=== PATIENT | female | born 1945 | race Caucasian/White ===

== ENCOUNTER → 2023-09-05 15:29 | Outpatient (REF) | payer MEDICARE, BC, SELFPAY | LOC: HWRAD 15:29 | PROVIDERS: ATTENDING PHYSICIAN Internal Medicine; FAMILY PHYSICIAN Internal Medicine Geriatric Medicine | DX: R91.1 Solitary pulmonary nodule (principal) | CPT/HCPCS: 71250 ==

== ENCOUNTER → 2023-09-10 10:56 | Outpatient (REF) | payer MEDICARE, BC, SELFPAY | LOC: DHSLP 10:56 | PROVIDERS: ATTENDING PHYSICIAN Internal Medicine; FAMILY PHYSICIAN Internal Medicine Geriatric Medicine | DX: G47.33 Obstructive sleep apnea (adult) (pediatric) (principal); R09.02 Hypoxemia | CPT/HCPCS: 95800 ==

== ENCOUNTER 2024-02-01 12:17 | Inpatient (IN) | payer MEDICARE, BC, SELFPAY ==
[2024-02-01] VITALS (7 sets, daily range): BP systolic 96–138; BP diastolic 50–79; BMI 35.5; BMI 37.1
[2024-02-01 08:43] LABS: % Basophils 0.4 % (0-2); % Eosinophils 0.5 % (0-6); % Immature Granulocytes 1.1 % (0-0.5); % Lymphocytes 13.4 % (20.5-51.1); % Monocytes 12.2 % (1.7-9.3); % Neutrophils 72.4 % (42.2-75.2); Absolute Immature Granulocytes 0.1 10^3/uL (0-0.05); Absolute Lymphocytes 1.1 10^3/uL (1.2-3.4); Absolute Neutrophils 5.9 10^3/uL (1.4-6.5); Hematocrit 39.2 % (37.0-47.0); Hemoglobin 13.1 g/dL (12.0-16.0); Mean Corp Hgb Conc. 33.4 g/dL (33.0-37.0); Mean Corpuscular Hgb 28.9 pg (27.0-31.0); Mean Corpuscular Volume 86.5 fL (81.0-99.0); Mean Platelet Volume 10.7 fL (7.4-10.4); Nucleated Red Blood Cells % 0 %; Platelet Count 129 10^3/uL (130-400); Red Blood Cell Count 4.53 10^6/uL (4.20-5.40); Red Cell Dist. Width 16.1 % (11.5-14.5); White Blood Cell Count 8.1 10^3/uL (4.8-10.8)
--- NOTE | 2024-02-01 08:45 | ED.GENMED ---
History of Present Illness
General
Chief Complaint: Chest Pain
Source: patient and records
Time Seen by Provider: 02/01/24 08:27
History of Present Illness
History of Present Illness:
This patient is an 78-year-old female presents emergency department complaints of left-sided chest pain. She states she got up around 5:30 AM and got dressed, felt like her usual self until around 6 AM when she developed a gradual onset of pain
just under her left breast without radiation. She describes the pain as 'sharp' and worse when she breathes in. She denies associated back pain, neck pain, jaw pain, headache, dizziness, abdominal pain, dyspnea, fever, chills. She does note a
recent cough. Patient has a history of CAD and states that she takes nitroglycerin infrequently, estimated every couple of months. She describes angina for her as a 'heavy' feeling across the front of her chest which is typically relieved with
nitroglycerin. The symptoms she is experiencing today are not similar to angina in the past. She did take nitroglycerin today without relief of symptoms.
Past History
Past History
ED Past Medical History: Other (CAD, hypertension, diabetes, hypercholesterolemia, COPD, CKD)
ED Past Surgical History: Orthopedic
Social History
Tobacco: Non-smoker
Alcohol: None
Drug: None
Phy Exam
Physical Exam
Physical Exam:
GENERAL: Alert , in no apparent distress
EYE: pupils equal and reactive
NECK: Supple, no significant adenopathy.
ENT: o/p clr, mmm.
CARDIAC: Regular rate and rhythm .
LUNGS: Equal breath sounds bilaterally, no acute respiratory distress, rales noted at R base. Occas nonprod cough noted
ABDOMEN: Soft, without focal tenderness, no r/g
NEUROLOGICAL: Alert and oriented, nonfocal
SKIN: Warm and dry, skin intact.
MUSCULOSKELETAL: tr bilat le edema, well perfused.
PSYCH: Normal and appropriate interaction.
Course
Orders/Labs/Results
Orders:
Orders
02/01/24 08:16
EKG- Treatment ONCE
02/01/24 08:20
Electrocardiogram (*1) Urgent
Reason for Study: Chest Pain
EKG- Treatment ONCE
02/01/24 08:31
CMP [Comprehensive Metabolic Panel] Urgent
Complete Blood Count/With Diff Urgent
Troponin I Urgent
02/01/24 08:35
D-Dimer Urgent
02/01/24 08:43
CR Chest - 2 Views Urgent
Comment:
Reason For Exam: cp
02/01/24 08:50
Ketorolac [Toradol] 15 mg IV NOW STA
02/01/24 09:59
CT Chest Pe Study Urgent
Comment:
Reason For Exam: L sided pain, elevated d dimer
02/01/24 11:[address] See Dose Instructions PO NOW STA
Discontinue all Active Warfarin orders?: Yes
02/01/24 11:14
PTT Urgent
Comment: Obtain baseline before beginning heparin infusion if not already collected
Nursing to Place Non Medication Order As Directed
Physician Order: PTT 6 hours after initial start of Heparin infusion
02/01/24 11:15
Heparin 48454 Units/250 ml 25,000 units in 250 ml IV PER PROTOCOL
Weight to be used for heparin protocol in kilograms (kg):: 86.7
Protocol:: DVT/PE
PTT Goal Range to be used:: PTT 73 to 111 seconds
Order type:: Initial
INITIAL Infusion Dose (UNITS/KG/hr) & then follow protocol:: 18 units/kg/hr
Infusion Dose in UNITS/hr & then follow protocol (UNITS/hr):: 1,600
INFUSION RATE in mL/hr & then follow protocol (mL/hr):: 16
For DVT/PE algorithm, re-bolus for low PTT?: Yes
PTT less than or equal to 64 seconds:: Re-bolus 80 units/kg (max 10,000units). Increase by 300 units/hr
(+ 3mL/hr)
PTT 64.1 to 72.9 seconds:: Re-bolus 40 units/kg (max 5,000 units). Increase by 200 units/hr
(+ 2mL/hr)
PTT 73 to 111 seconds:: Target Range. No change in rate.
PTT 111.1 to 130.9 seconds:: Decrease rate by 200 units/hr (- 2 mL/hr)
PTT 131 to 199.9 seconds:: HOLD for 1 hr. Then decrease by 300 units/hr (- 3mL/hr)
PTT greater than or equal to 200 seconds:: HOLD for 2 hrs & Notify Provider. Then decrease by 300 units/hr
(- 3mL/hr)
Lab follow-up:: Each change, PTT q6h until 2 consecutive are therapeutic. Then
PTT daily.
02/01/24 12:[address] See Dose Instructions IV DIRECTED
Abnormal Lab Results
02/01/24 02/01/24
08:31 08:35
RDW 16.1 H %
(11.5-14.5)
Plt Count 129 L D 10^3/uL
(130-400)
MPV 10.7 H fL
(7.4-10.4)
Abs Immat Gran (auto) 0.1 H 10^3/uL
(0-0.05)
Absolute Lymphs (auto) 1.1 L 10^3/uL
(1.2-3.4)
Absolute Monos (auto) 1.0 H 10^3/uL
(0.1-0.6)
Immature Gran % 1.1 H %
(0-0.5)
Lymphocytes % 13.4 L %
(20.5-51.1)
Monocytes % 12.2 H %
(1.7-9.3)
D-Dimer 2.95 H ug/mlFEU
(0.00-0.50)
Glucose 101 H mg/dl
(70-99)
Total Protein 6.0 L g/dl
(6.3-8.2)
02/01/24 08:31
02/01/24 08:31
Vital Signs
Initial and Last Documented VS:
Initial Vital Signs
Pulse Resp BP Pulse Ox
94 18 128/79 95
02/01/24 08:17 02/01/24 08:17 02/01/24 08:17 02/01/24 08:17
Last Documented Vital Signs
Pulse Resp BP Pulse Ox
88 19 114/67 95
02/01/24 11:09 02/01/24 11:09 02/01/24 09:00 02/01/24 11:09
Update Note
Update Note:
Patient presents to the Emergency Department with _cp
Number and Complexity of Problems Addressed at the Encounter
� Chronic conditions affecting care:
� Acute Exacerbation and/or Progression of Chronic Illness:
� Differential Diagnosis includes:but not limited to pleurisy,pna, pe, acs, ptx, etc etc
Amount and/or Complexity of Data to be Reviewed and Analyzed
� I performed an independent evaluation of and my interpretation is:
EKG: read by me, nsr, no acute ischemia
CT:via tt from rads Positive pe study for [facility]. Pretty significant clot burden but RV doesn�t look appreciably dilated
Xrays:Minimal bibasilar atelectasis/scarring. Questionable 10 mm nodular density within the RIGHT midlung which may correspond to a nodule seen on the prior CT.
No pleural effusions.
Laboratory Studies:nonspecific thrombocytopenia, trop nonspec 0.026
Other:
� Review of other/old records reveals: rehab notes from [facility] reviewed
� Clinical information was obtained by an independent historian:
� Prescriptions/Medications Considered but not given:considered morphine for pain however narc allergy noted (n/v). Toradol given, consideration of low risk bleeding given heparin/asa already, labs reviewed and kidney fx/gfr wnl
from 01.28.24
� Further testing considered but not performed:
Risk of Complications and/or Morbidity or Mortality of Patient Management
� Social determinants of health affecting care:
� Discussion with other providers (PCP, Hospitalists, Consultants, etc):
� Escalation of care including admission/observation vs risk of discharge considered: 11:19 AM Bostic text to Dr. Wilson hospitalists making him aware of patient. Of note, patient already received subcu 5000 units of heparin
this morning, therefore bolus was avoided and patient just started on a heparin drip by me. Reassessment, vital signs are stable, patient comfortable, no new complaints. Pulse ox within normal limits. Given stability and lack of RV strain, do not
suspect patient is a candidate for more invasive therapy at this time.
ED Attending Note
-
Portions of this chart may have been created with voice recognition software.� Occasional wrong word or��sound alike� substitutions may have occurred due to the inherent limitations of voice recognition software.
Discharge Plan
Departure
Patient Disposition: Admit
Date of Disposition: 02/01/24
Time of Disposition: 11:19
Presentation/result/management discussed w/ accepting MD/DO: Hospitalist
Condition: Fair
Discharge Problem:
Pulmonary embolism
Prescriptions:
No Action
sennosides [senna] 8.6 mg Tablet
17.2 mg PO NOON
lidocaine 4 % Adhesive Patch,Medicated
1 patch TOPICAL DAILY
albuterol sulfate 1.25 mg/3 mL Solution For Nebulization
1.25 mg INHALATION DAILY
albuterol sulfate 1.25 mg/3 mL Solution For Nebulization
1.25 mg INHALATION Q4H PRN (Reason: sob)
pantoprazole 20 mg Tablet,Delayed Release (Dr/Ec)
20 mg PO HS
fluticasone propionate [Flovent] 44 mcg/actuation Hfa Aerosol Inhaler
2 puff INHALATION BID
docusate sodium [Colace] 100 mg Capsule
100 mg PO BID
gabapentin 300 mg Capsule
300 mg PO HS
heparin (porcine) 5,000 unit/mL Solution
5,000 unit SC Q12H
guaifenesin 200 mg/5 mL Liquid
200 mg PO Q4H PRN (Reason: cough)
aspirin 81 mg Capsule
81 mg PO DAILY
BenGay
1 dose topical TIDPRN PRN (Reason: .as directed)
acetaminophen 325 mg Tablet
650 mg PO Q6HPRN PRN (Reason: mild pain)
budesonide 3 mg Capsule,Delayed,Extend.Release
9 mg PO DAILY
albuterol sulfate [Proventil HFA] 90 mcg/actuation Hfa Aerosol Inhaler
1 puff INHALATION Q4HPRN PRN (Reason: wheezing)
cholecalciferol (vitamin D3) [Vitamin D3] 25 mcg (1,000 unit) Capsule
25 mcg PO DAILY
cholestyramine (with sugar) 4 gram Powder In Packet
4 g PO DAILY
metoprolol succinate 50 mg Tablet Extended Release 24 Hr
50 mg PO DAILY
cyanocobalamin (vitamin B-12) 1,000 mcg Tablet
1,000 mcg PO DAILY
thiamine HCl (vitamin B1) 100 mg Tablet
100 mg PO DAILY
tramadol 50 mg Tablet
50 mg PO Q6HPRN PRN (Reason: moderate pain)
levothyroxine 50 mcg Tablet
50 mcg PO DAILY AT 0700
nitroglycerin 0.4 mg Tablet, Sublingual
0.4 mg SUBLINGUAL Q5M PRN (Reason: cp)
losartan 100 mg Tablet
50 mg PO DAILY
rosuvastatin [Crestor] 40 mg Tablet
40 mg PO DAILY
Jardiance 10 mg Tablet
10 mg PO DAILY
cyclosporine 0.05 % Drops
1 drp BOTH EYES BID
isosorbide dinitrate
30 mg PO DAILY
Referrals:
Sayra Arango MD [Family Provider] -
Interventions
Interventions:
*Risk Screen - Suicide Last Done: 02/01/24 08:38
*Neglect/Abuse Screening Last Done: 02/01/24 08:38
ED- Fall Risk Assessment Last Done: 02/01/24 08:20
*ED COVID-19 Vaccine History Last Done: 02/01/24 08:20
ED- Cardiac Assessment Last Done: 02/01/24 08:39
Discharge Date and Time
Print Language: DANISH
[2024-02-01] MEDS: TORADOL 15 MG IV (08:56)
[2024-02-01 08:57] LABS: ALT (SGPT) 30 U/L (0-35); AST (SGOT) 25 U/L (14-36); Albumin 3.8 g/dl (3.5-5.0); Alkaline Phosphatase 60 U/L (38-126); Blood Urea Nitrogen 15 mg/dl (7-17); Calcium 9.6 mg/dl (8.4-10.2); Carbon Dioxide 26 mmol/L (22-30); Chloride 103 mmol/L (98-107); Estimated Creatinine Clearance 50 ml/min; Glucose 101 mg/dl (70-99); Potassium 4.1 mmol/L (3.5-5.1); Sodium 139 mmol/L (135-145); eGFR > 60.00
[2024-02-01 09:08] LABS: Troponin I 0.026 ng/ml
[2024-02-01 09:25] LABS: D-Dimer 2.95 ug/mlFEU (0.00-0.50)
--- NOTE | 2024-02-01 11:52 | HPS.HSE ---
Family Physician
-
Family Physician: Sayra Arango
Chief Complaint
-
chest pain
History of Present Illness
78yo F with PMHx of CAD s/p PCI, HTN, DM, ocular migraines, HLD, hypothyroidism, obesity, MASON, COPD, microscopic colitis, fatty liver, recent anterior cervical C6-C7 ACDF in [facility] on 01/09/24 with partial improvement of symptoms later
transferred for [facility] rehab started to feel sharp pain under L breast since AM on the day of admission with was totally different from her previous cardiac pains. Found pulmonary embolism on CT. Remained not hypoxic, hemodynamically stable in ED
Medical History
Past Medical History
Past Medical History: Reports Other
Additional Past Medical History:
See HPI
Past Surgical History: Reports Other
Additional Past Surgical History:
See HPI
Social History
Tobacco: Former Smoker
Alcohol: None
Drug: None
Family History
Family History: Not pertinent
Allergies / Home Medications
Allergies reflects when Allergies were last updated in [employer].
Home Medications with original date entered in [employer]
Allergy/Medication List:
Allergies
Allergy/AdvReac Type Severity Reaction Status Date / Time
amoxicillin [From Augmentin] Allergy Severe Hives Verified 02/01/24 08:40
clavulanic acid Allergy Severe Hives Verified 02/01/24 08:40
[From Augmentin]
acetaminophen [From Percocet] Allergy Vomiting Verified 02/01/24 08:40
clopidogrel [From Plavix] Allergy Pharmacy Verified 02/01/24 08:40
to Review
codeine Allergy Hives Verified 02/01/24 08:40
hydrochlorothiazide Allergy Pharmacy Verified 02/01/24 08:40
to Review
oxycodone [From Percocet] Allergy Vomiting Verified 02/01/24 08:40
tomato Allergy Unknown Verified 02/01/24 08:40
tramadol Allergy Nausea / Verified 02/01/24 08:40
Vomiting
vancomycin Allergy Pharmacy Verified 02/01/24 08:40
to Review
Home Medications
acetaminophen 325 mg tablet 650 mg PO Q6HPRN PRN mild pain 01/16/24
albuterol sulfate 90 mcg/actuation aerosol inhaler (Proventil HFA) 1 puff inhalation R Q4HPRN PRN wheezing 01/16/24
budesonide 3 mg capsule,delayed,extended release 9 mg PO DAILY 01/16/24
cholecalciferol (vitamin D3) 25 mcg (1,000 unit) capsule (Vitamin D3) 25 mcg PO DAILY 01/16/24
cholestyramine (with sugar) 4 gram powder for susp in a packet 4 g PO DAILY@1000 01/16/24
cyanocobalamin (vitamin B-12) 1,000 mcg tablet 1,000 mcg PO DAILY 01/16/24
cyclosporine 0.05 % eye drops (Restasis MultiDose) 1 drp BOTH EYES BID 01/16/24
empagliflozin 10 mg tablet (Jardiance) 10 mg PO DAILY 01/16/24
isosorbide mononitrate 30 mg tablet,extended release 24 hr 30 mg PO DAILY 01/16/24
levothyroxine 50 mcg tablet 50 mcg PO DAILY AT 0700 01/16/24
losartan 100 mg tablet 50 mg PO QPM 01/16/24
metoprolol succinate 50 mg tablet,extended release 24 hr 50 mg PO DAILY 01/16/24
nitroglycerin 0.4 mg sublingual tablet 0.4 mg sublingual [id number] PRN CHEST PAINS 01/16/24
rosuvastatin 40 mg tablet (Crestor) 40 mg PO DAILY 01/16/24
thiamine HCl (vitamin B1) 100 mg tablet 100 mg PO DAILY 01/16/24
tramadol 50 mg tablet 50 mg PO Q6HPRN PRN moderate pain 01/16/24
albuterol sulfate 1.25 mg/3 mL solution for nebulization 1.25 mg inhalation R DAILY 02/01/24
albuterol sulfate 1.25 mg/3 mL solution for nebulization 1.25 mg inhalation R Q4HPRN PRN sob 02/01/24
aspirin 81 mg tablet,delayed release 81 mg PO DAILY 02/01/24
docusate sodium 100 mg capsule (Colace) 100 mg PO BID 02/01/24
fluticasone propionate 44 mcg/actuation HFA aerosol inhaler 2 puff inhalation R BID 02/01/24
gabapentin 300 mg capsule 300 mg PO HS 02/01/24
guaifenesin 200 mg/5 mL oral liquid 200 mg PO Q4HPRN PRN cough 02/01/24
heparin (porcine) 5,000 unit/mL injection solution 5,000 unit SC Q12H 02/01/24
lidocaine 4 % topical patch 1 patch topical DAILY CERVICAL SPINE 02/01/24
methyl salicylate 15 %-menthol 10 % topical cream 1 applic topical TIDPRN PRN NECK 02/01/24
pantoprazole 20 mg tablet,delayed release 20 mg PO HS 02/01/24
sennosides 8.6 mg tablet (senna) 17.2 mg PO NOON 02/01/24
Review of Systems
-
History Source: Patient
A 12 point ROS was completed and negative except as noted: Yes
Cardiac: Reports Chest Pain
Physical Exam
Vital Signs
Vital Signs
Pulse Resp BP Pulse Ox
90 34 114/67 95
02/01/24 11:30 02/01/24 11:30 02/01/24 09:00 02/01/24 11:30
Physical Exam
General: Well Developed, Well Nourished and No Apparent Distress
HEENT: NormoCephalic
Respiratory: Clear; No Wheezes or Rales
Cardiac: S1/S2
GI: Soft, Non Tender and Non Distended
Musculoskeletal: No Clubbing, No Cyanosis and No Edema
Skin: Warm
Neuro: Awake, Alert, Oriented and AO x 3
Psych: Calm
Laboratory Results
-
02/01/24 08:31
02/01/24 08:31
Laboratory Results
Total Bilirubin 1.0 mg/dl (0.2-1.3) 02/01/24 08:31
AST 25 U/L (14-36) 02/01/24 08:31
ALT 30 U/L (0-35) 02/01/24 08:31
Alkaline Phosphatase 60 U/L (38-126) 02/01/24 08:31
Troponin I 0.026 ng/ml 02/01/24 08:31
Data Reviewed
-
CT Scan: Report Reviewed by me
Lab Data: Labs Reviewed by me
Impression/Plan
-
A/P:
#Acute pulmonary embolism, most likely provoked 2/2 recent surgery
PESI 90 - class 3 - intermediate risk, apropriate for inpatient monitoring with extended parenteral anticoagulation
Heparin drip
Troponin and proBNP for risk stratification
EKG without ST changes
Pulm conult
Echo and LE US
#Mild thrombocytopenia
most likely 2/2 PE
4T score 3 - reasonable to sent HITAb
#Paracentral disk herniation s/p ACDF
PT/OT
#DM type 2 with neuropathy
cont home meds
Accuchecks, Insulin SS, DM diet
Hold oral hypoglycemics
#MASON
#CAD s/p PCI
#Essential HTN
#Fatty liver disease
#Hx of pulmonary nodules
#Ocular migraines
#COPD not in exacrbation
#Hypothyroidism
#HLD
#Constipation
Cont home meds
cont CPAP
cont to follow with established laboratory equipment installer upon d/c
DVT ppx - on hep drip
FUll code
I have spent at least 78min admitting the patient, reviewing chart, test results, communication with consultants and direct patient care
[2024-02-01 12:08] LABS: APTT 29.9 Sec (23.4-35.0)
[2024-02-01] MEDS: HEPARIN 25000 UNITS/250 ML IV (12:12)
[2024-02-01 12:28] LABS: NT-proBNP 150 pg/ml
--- NOTE | 2024-02-01 12:38 | CON.PUL ---
Consultation
Consultation Request
Date/Time Consultation Requested: 02/01/24-11:40 AM
Date/Time Consultation Performed: 02/01/24-11:45 AM
Requesting Provider: hospitalist
Performing Provider: , Dr. Villagomez
Reason for Consultation: , submassive pulmonary embolism
Medical History
-
Chief Complaint: shortness of breath/chest pain
History of Present Illness:
78-year-old female with history of CAD, hypertension, diabetes, COPD, chronic kidney disease presented with left-sided chest pain from rehab noted to have submassive pulmonary embolism-pulmonary consulted for pulmonary embolism 02/01/2024. .
Patient states that she was progressing in physical therapy. She was on subcutaneous heparin twice daily. She developed chest pain. He was brought to emergency room note. 7. Elevated d-dimer. She continues to have some anterior pleuritic chest
pain. On the left side. She has no shortness of breath at rest, other chest pain, tightness, wheezing, productive cough, abdominal pain, nausea, vomiting, increased leg swelling or weakness.
Past Medical History
Past Medical History: None (CAD/stents. Hypertension. Hyperlipidemia. Diabetes. COPD. Chronic kidney disease-diabetic nephropathy. Obesity. MASON on CPAP. Fatty liver. Vitamin D deficiency. Cataract. Cervical discectomy. Tubal ligation.
Thyroid nodule removed)
Social History
Tobacco: Former Smoker ( [id number], quit 1990)
Alcohol: Occasional
Drug: None
Living: With Family
Occupational Exposures: . No known asbestos exposure
Environmental Exposures: . No known tuberculosis exposure
Family History
Family History: Other (Father-CAD. Brother-CAD. Brother and sister-lung cancer. Mother-hypertension. Sister-CVA. Father-cirrhosis.)
Allergies / Home Medications
Allergies
Allergy/AdvReac Type Severity Reaction Status Date / Time
amoxicillin [From Augmentin] Allergy Severe Hives Verified 02/01/24 08:40
clavulanic acid Allergy Severe Hives Verified 02/01/24 08:40
[From Augmentin]
acetaminophen [From Percocet] Allergy Vomiting Verified 02/01/24 08:40
clopidogrel [From Plavix] Allergy Pharmacy Verified 02/01/24 08:40
to Review
codeine Allergy Hives Verified 02/01/24 08:40
hydrochlorothiazide Allergy Pharmacy Verified 02/01/24 08:40
to Review
oxycodone [From Percocet] Allergy Vomiting Verified 02/01/24 08:40
tomato Allergy Unknown Verified 02/01/24 08:40
tramadol Allergy Nausea / Verified 02/01/24 08:40
Vomiting
vancomycin Allergy Pharmacy Verified 02/01/24 08:40
to Review
Home Medications
�Medication �Instructions �Recorded �Confirmed �Last Taken �Type
acetaminophen 325 mg tablet 650 mg PO Q6HPRN PRN mild pain 01/16/24 02/01/24 Unknown History
albuterol sulfate 90 mcg/actuation 1 puff inhalation R Q4HPRN PRN 01/16/24 02/01/24 Unknown History
aerosol inhaler (Proventil HFA) wheezing
budesonide 3 mg 9 mg PO DAILY 01/16/24 02/01/24 02/01/24 History
capsule,delayed,extended release
cholecalciferol (vitamin D3) 25 25 mcg PO DAILY 01/16/24 02/01/24 02/01/24 History
mcg (1,000 unit) capsule (Vitamin
D3)
cholestyramine (with sugar) 4 gram 4 g PO DAILY@1000 01/16/24 02/01/24 01/31/24 History
powder for susp in a packet
cyanocobalamin (vitamin B-12) 1,000 mcg PO DAILY 01/16/24 02/01/24 02/01/24 History
1,000 mcg tablet
cyclosporine 0.05 % eye drops 1 drp BOTH EYES BID 01/16/24 02/01/24 02/01/24 History
(Restasis MultiDose)
empagliflozin 10 mg tablet 10 mg PO DAILY 08/01/0102/01/24 02/01/24 History
(Jardiance)
isosorbide mononitrate 30 mg 30 mg PO DAILY 01/16/24 02/01/24 02/01/24 History
tablet,extended release 24 hr
levothyroxine 50 mcg tablet 50 mcg PO DAILY AT 0700 01/16/24 02/01/24 02/01/24 History
losartan 100 mg tablet 50 mg PO QPM 01/16/24 02/01/24 01/31/24 History
metoprolol succinate 50 mg 50 mg PO DAILY 01/16/24 02/01/24 02/01/24 History
tablet,extended release 24 hr
nitroglycerin 0.4 mg sublingual 0.4 mg sublingual [id number] PRN 01/16/24 02/01/24 Unknown History
tablet CHEST PAINS
rosuvastatin 40 mg tablet (Crestor) 40 mg PO DAILY 01/16/24 02/01/24 02/01/24 History
thiamine HCl (vitamin B1) 100 mg 100 mg PO DAILY 01/16/24 02/01/24 02/01/24 History
tablet
tramadol 50 mg tablet 50 mg PO Q6HPRN PRN moderate pain 01/16/24 02/01/24 Unknown History
albuterol sulfate 1.25 mg/3 mL 1.25 mg inhalation R DAILY 02/01/24 02/01/24 02/01/24 History
solution for nebulization
albuterol sulfate 1.25 mg/3 mL 1.25 mg inhalation R Q4HPRN PRN sob 02/01/24 02/01/24 Unknown History
solution for nebulization
aspirin 81 mg tablet,delayed 81 mg PO DAILY 02/01/24 02/01/24 02/01/24 History
release
docusate sodium 100 mg capsule 100 mg PO BID 02/01/24 02/01/24 Unknown History
(Colace)
fluticasone propionate 44 2 puff inhalation R BID 02/01/24 02/01/24 02/01/24 History
mcg/actuation HFA aerosol inhaler
gabapentin 300 mg capsule 300 mg PO HS 02/01/24 02/01/24 01/31/24 History
guaifenesin 200 mg/5 mL oral liquid 200 mg PO Q4HPRN PRN cough 02/01/24 02/01/24 Unknown History
heparin (porcine) 5,000 unit/mL 5,000 unit SC Q12H 02/01/24 02/01/24 02/01/24 History
injection solution
lidocaine 4 % topical patch 1 patch topical DAILY CERVICAL 02/01/24 02/01/24 02/01/24 History
SPINE
methyl salicylate 15 %-menthol 10 1 applic topical TIDPRN PRN NECK 02/01/24 02/01/24 01/31/24 History
% topical cream
pantoprazole 20 mg tablet,delayed 20 mg PO HS 02/01/24 02/01/24 01/31/24 History
release
sennosides 8.6 mg tablet (senna) 17.2 mg PO NOON 02/01/24 02/01/24 Unknown History
Review of Systems
-
Unable to Obtain full review of systems at this time due to: Other ( Per HPI)
Vitals / Labs / Diagnostic Testing
Vital Signs
Pulse Resp BP Pulse Ox
89 32 138/72 95
02/01/24 12:30 02/01/24 12:30 02/01/24 12:00 02/01/24 12:00
Lab Data
02/01/24 08:31
02/01/24 08:31
Laboratory Results
02/01/24
11:39
APTT 29.9
Diagnostic Testing:
Physical Exam
-
Exam:
HEENT atraumatic normocephalic and anicteric. Heart was regular without murmur, no increased P2, no RV heave. Chest was clear without wheezes or crackles. Integument without rashes or icterus. Neurologic exam without weakness or numbness.
Abdomen soft and nondistended. The patient had no JVD, cyanosis, clubbing trace lower extremity edema, negative Homans sign.
Assessment
-
78-year-old female with history of CAD, hypertension, diabetes, COPD, chronic kidney disease presented with left-sided chest pain from rehab noted to have submassive pulmonary embolism-pulmonary consulted for pulmonary embolism 02/01/2024.
Submassive pulmonary embolism without significant RV strain-suspect provoked
PESI [id number] risk
Mild thrombocytopenia
Mild hyperglycemia
Pulmonary nodules
Conditions present prior to admission:
CAD/stents-RCA 2009 and 2017
Hypertension.
Hyperlipidemia.
Diabetes.
COPD. .
Former smoker.
Seasonal allergies.
Nasal polyps
Chronic kidney disease-diabetic nephropathy.
Obesity-BMI 38
MASON on CPAP.
Nocturnal hypoxemia
Fatty liver.
Vitamin D deficiency.
Cataract. Cervical discectomy. Tubal ligation-1972. Thyroid nodule removed 1991
Plan
Patient will be admitted to telemety
Supplemental oxygen as needed
Aspiration precautions
Incentive spirometry
CT chest personally reviewed--see interpretation below
Check echocardiogram
Check lower extremity ultrasound
May need eventual hypercoagulable workup-suspect provoked, however
Full PESI summarized above
Heparin drip or Lovenox 1 mg/kg every 12 hours
Benefits and risks of thrombolytics therapy reviewed
Patient has no tachycardia and no hypotension-currently risks of aggressive thrombolytic therapy outweigh [id number]-[id number]-ammdyac notified of options, reasons for conservative standard of care therapy reviewed
Bedrest �24 hours
DVT prophylaxis-on full anticoagulation
Early nutrition
Early mobilization
Patient last seen by Dr. Apple Shi 12/27/23 and was supposed to follow-up in one year-will have her seen obviously sooner
Outpatient pulmonary/sleep disorders [id number] results summarized below-Notes significant nocturnal hypoxemia
Outpatient appropriate malignancy screening
Diagnostic data:
Chest x-ray 02/01/2024-minimal bibasilar atelectasis, questionable 10 mm nodular density right midlung field
CT of chest (06/24/23)- patchy areas of airspace disease in left LL. Focal nodular area measuring 11 mm in right LL and 9 mm in right LL- suspicious for infection. Follow up recommended.
CT Chest 09/05/23: 2.5 mm nodule within the inferior RUL. Ill defined density seen within the superior segment of the RLL which appears more nodular in appearance along its superior margin measuring 9.4 mm. Heavily calcified aortic valve and coronary
arteries. Hepatic steatosis. Recommend continued short term CT follow up 3-[address] chest 02/01/2024-multiple filling defects compatible with pulmonary emboli, no dilation of right ventricle, grossly unchanged 10 mm subpleural opacification superior segment right lower lobe, hepatic steatosis
MRI of cervical spine (01/08)-No bone edema present. Interval post surgical changes of anterior spinal fusion at C6-7 level. No cord compression. Multilevel DJD changes including spinal stenosis.
CT of cervical spine (01/08)-Anterior spinal fusion at C6-7 level with intervertebral disc prosthesis. DJD of cervical spine.
Echo (04/2023)- AV trileaflet. Mild aortic sclerosis. Normal RV function. PASP 11 mm. No significant valvular heart disease. LV function is 65-70%, CLVH. Grade 1 diastolic dysfunction.
Nuclear stress test (01/03)- Negative for ischemia. LV function is normal. Baseline EKG- NSR with low voltage QRS, poor R wave progression. LVEF during stress test is 84%
HST-ordered by Dr. Mack's [id number]-69.1, desaturation travon 75%, REM-AHI 29.5, 113 minutes spent less than 90% saturation
Spirometry 08/30/23- FEV1 0.83L 50%, FVC 1.59 or 71%, Ratio 52. Post FEV1 1.29L 78% sign BD response in FEV1 and FVC (moderate obstruction with sign BD response).
PFTs 12/27/23: FEV1 1.4L 87%, FVC 1.87L 86%, ratio 75.� TLC 3.25L 74%, DLCO 78% (mild restriction)
Data Reviewed
-
PFT: Report reviewed by me
EKG: Report reviewed by me
Radiology: Report reviewed by me
CT Scan: Image personally visualized and interpreted and Report reviewed by me
Medical Tests (Nuc Med, Echo etc): Report reviewed by me
Labs: Labs reviewed by me
Old Records: Reviewed
Total Time Spent with Patient (in minutes): 55
[2024-02-01 14:52] LABS: Troponin I 0.031 ng/ml
[2024-02-01] MEDS: SENOKOT 17.2 MG PO (15:59)
[2024-02-01 16:48] LABS: Glucose - Point of Care 79 mg/dl (70-99)
[2024-02-01] MEDS: COZAAR 50 MG PO (17:11)
[2024-02-01 19:10] LABS: APTT > 200 Sec (23.4-35.0)
[2024-02-01] MEDS: FLOVENT 44 MCG INHALER 2 PUFF INH (19:52)
[2024-02-01] MEDS: VENTOLIN NEBULES 1.25 MG INH (19:53)
[2024-02-01] MEDS: COLACE 100 MG PO (20:43)
[2024-02-01] MEDS: RESTASIS 0.05% OPHTHALMIC EMULSION 1 DROPS BOTH EYES (20:43)
[2024-02-01 21:21] LABS: Troponin I 0.018 ng/ml
[2024-02-01] MEDS: MOTRIN 600 MG PO (21:21)
[2024-02-01 21:58] LABS: Glucose - Point of Care 98 mg/dl (70-99)
[2024-02-01] MEDS: PROTONIX 20 MG PO (22:06)
[2024-02-01] MEDS: NEURONTIN 300 MG PO (22:06)
[2024-02-02 03:24] VITALS: BP 108/63
[2024-02-02 04:28] LABS: APTT > 200 Sec (23.4-35.0)
[2024-02-02] MEDS: SYNTHROID 50 MCG PO (06:02)
[2024-02-02] MEDS: MOTRIN 600 MG PO (06:05)
[2024-02-02 06:36] LABS: % Basophils 0.6 % (0-2); % Eosinophils 0.8 % (0-6); % Immature Granulocytes 1.2 % (0-0.5); % Lymphocytes 17.8 % (20.5-51.1); % Monocytes 12.8 % (1.7-9.3); % Neutrophils 66.8 % (42.2-75.2); Absolute Eosinophils 0.1 10^3/uL (0-0.7); Absolute Immature Granulocytes 0.1 10^3/uL (0-0.05); Absolute Lymphocytes 1.3 10^3/uL (1.2-3.4); Absolute Monocytes 0.9 10^3/uL (0.1-0.6); Absolute Neutrophils 4.8 10^3/uL (1.4-6.5); Hematocrit 38.1 % (37.0-47.0); Hemoglobin 12.6 g/dL (12.0-16.0); Mean Corp Hgb Conc. 33.1 g/dL (33.0-37.0); Mean Corpuscular Hgb 29.7 pg (27.0-31.0); Mean Corpuscular Volume 89.9 fL (81.0-99.0); Mean Platelet Volume 10.8 fL (7.4-10.4); Nucleated Red Blood Cells % 0 %; Platelet Count 110 10^3/uL (130-400); Red Blood Cell Count 4.24 10^6/uL (4.20-5.40); Red Cell Dist. Width 16.4 % (11.5-14.5); White Blood Cell Count 7.3 10^3/uL (4.8-10.8)
[2024-02-02 07:05] LABS: Glucose - Point of Care 91 mg/dl (70-99)
[2024-02-02 07:11] LABS: ALT (SGPT) 26 U/L (0-35); AST (SGOT) 25 U/L (14-36); Albumin 3.3 g/dl (3.5-5.0); Alkaline Phosphatase 55 U/L (38-126); Blood Urea Nitrogen 15 mg/dl (7-17); Calcium 9.1 mg/dl (8.4-10.2); Carbon Dioxide 25 mmol/L (22-30); Chloride 105 mmol/L (98-107); Estimated Creatinine Clearance 51 ml/min; Glucose 85 mg/dl (70-99); Potassium 3.8 mmol/L (3.5-5.1); Sodium 141 mmol/L (135-145); Total Bilirubin 0.9 mg/dl (0.2-1.3); Total Protein 5.6 g/dl (6.3-8.2); eGFR > 60.00
[2024-02-02] MEDS: VENTOLIN NEBULES 1.25 MG INH (07:32)
[2024-02-02] MEDS: FLOVENT 44 MCG INHALER 2 PUFF INH ×2 (07:32→20:52)
[2024-02-02 07:38] VITALS: BP 104/50
[2024-02-02] MEDS: IMDUR (EXTENDED RELEASE) 30 MG PO (08:14)
[2024-02-02] MEDS: VITAMIN B1 100 MG PO (08:14)
[2024-02-02] MEDS: COLACE 100 MG PO ×2 (08:14→20:27)
[2024-02-02] MEDS: VITAMIN B-12 1000 MCG PO (08:14)
[2024-02-02] MEDS: CRESTOR 40 MG PO (08:16)
[2024-02-02] MEDS: TOPROL XL 50 MG PO (08:16)
[2024-02-02] MEDS: ASPIR LOW (ENTERIC COATED) 81 MG PO (08:16)
[2024-02-02] MEDS: VITAMIN D3 (cholecalciferol) 25 MCG PO (08:16)
[2024-02-02] MEDS: RESTASIS 0.05% OPHTHALMIC EMULSION 1 DROPS BOTH EYES ×2 (08:17→20:27)
[2024-02-02] MEDS: LIDOCAINE 4% PATCH 1 PATCH TOPICAL (08:17)
[2024-02-02] MEDS: ENTOCORT EC 9 MG PO (08:17)
--- NOTE | 2024-02-02 08:27 | W.PN.HOSP.TC ---
Today's Communication/Plan
-
cont heparin drip
cardio consult
Assessment / Plan
Assessment / Plan
78yo F with PMHx of CAD s/p PCI, HTN, DM, ocular migraines, HLD, hypothyroidism, obesity, MASON, COPD, microscopic colitis, fatty liver, recent anterior cervical C6-C7 ACDF in [facility] on 01/09/24 with partial improvement of symptoms later
transferred for [facility] started to feel sharp pain under L breast. Found pulmonary embolism on CT and RLE DVT. Remained not hypoxic, hemodynamically stable, Echo without RH disfunction
A/P
#Acute pulmonary embolism, most likely provoked 2/2 recent surgery
#Acute RLE DVT
PESI 90 - class 3 - intermediate risk, appropriate for inpatient monitoring with extended parenteral anticoagulation
Heparin drip
Troponin and proBNP for risk stratification
EKG without ST changes
Pulm conult: eventual hypercoagulable workup
Advised to have age appropriate CA screening with PCP 2/2 large clot burden, however still suspect recent Sx to be the reason
Echo without RH disfunction
LE US showed RLE DVT
#Mild thrombocytopenia
most likely 2/2 PE
4T score 3 - reasonable to sent HITAb
#Paracentral disk herniation s/p ACDF
PT/OT
#DM type 2 with neuropathy
cont home meds
Accuchecks, Insulin SS, DM diet
Hold oral hypoglycemics
#Mild troponin elevation, most likely non-ischemic, 2/2 VTE
Chest pain is pleuritic
however with PMHx of CAD with PCI will call Cardiology consult
cont ASA, hep drip
#MASON
#CAD s/p PCI
#Essential HTN
#Fatty liver disease
#Hx of pulmonary nodules
#Ocular migraines
#COPD not in exacrbation
#Hypothyroidism
#HLD
#Constipation
Cont home meds
cont CPAP
cont to follow with established business support associate upon d/c
DVT ppx - on hep drip
FUll code
I have spent at least 38min reviewing the chart, test results, communication with consultants and direct patient care
Anticipated Discharge: > 48 hours
Subjective/Interval History
-
Date of Service: February 02, 2024
Objective Data
-
Labs:
Laboratory Results
02/02/24 02/02/24 02/02/24
03:43 05:53 12:30
WBC 7.3
Hgb 12.6
Hct 38.1
Plt Count 110 L
APTT > 200 H* Pending
Sodium 141
Potassium 3.8
Chloride 105
Carbon Dioxide 25
BUN 15
Creatinine 0.9
Glucose 85
Calcium 9.1
Total Bilirubin 0.9
AST 25
ALT 26
Alkaline Phosphatase 55
Vital Signs:
Vital Signs
Temp Pulse Resp BP Pulse Ox
98.1 F 89 16 104/50 92
02/02/24 07:38 02/02/24 07:38 02/02/24 07:38 02/02/24 07:38 02/02/24 07:38
I&O
02/01/24 02/02/24 02/03/24
06:59 06:59 06:59
Intake Total 240 / 240
Balance 240 / 240
Review of Systems
-
History Source: Patient
All other systems: Reviewed and negative
Cardiac: Reports Chest Pain
Physical Exam
-
General: No Apparent Distress
HEENT: Normocephalic
Respiratory: Clear to Auscultation
Cardiac: Regular Rhythm
GI: Soft, Nontender and Nondistended
Musculoskeletal: No Clubbing, No Cyanosis and Edema, Right Lower Extrem
Skin: Warm
Neuro: Awake, Alert, Oriented and AO x 3
[2024-02-02 09:27] LABS: Troponin I 0.032 ng/ml
--- NOTE | 2024-02-02 09:40 | CON.CAR ---
Addendum entered and electronically signed by Naina Bauman DO 02/02/24 13:28:
I saw and examined the patient.
The Breaker Off's note was reviewed and I agree with the note.
Comment: Patient seen and examined with , Bryan at bedside. Yohana is an 78 year old female with PMH of CAD s/p PCI of RCA, COPD, MASON, HTN, HLD, DM2, hypothyroidism, and CKD. She is followed routinely with Dr. Gonzalez. She was recently
hospitalized at [facility] where she underwent C6-7 ACDF 01/09/2024 for cervical myelopathy complicated by postop numbness from her torso down involving both legs and neuropathic pain transferred to [facility] 01/16/2024. She was seen by her farm product purchaser
prior to the surgery and had a stress test which was reportedly okay. She has been at [facility] until yesterday, 02/01/2024 when she developed SOB and chest discomfort under her left breast. She reports chest pain is sharp and worse with deep
inspiration, certain movements and cough. She reports this chest pain is different than prior angina. Additionally she reports having right greater than left leg swelling for several days. Due to symptoms, she was referred to [facility] where she was
found to have multiple bilateral PE on chest CT and lower extremity Doppler with a right lower extremity DVT with nonocclusive thrombus in the right popliteal vein and occlusive thrombus in the right peroneal vein. She was started on IV heparin.
Fortunately she s is not requiring O2 supplementation. An echocardiogram yesterday noted normal biventricular size and systolic function with mild aortic stenosis, peak/mean gradients 22/11 mmHg. With mild AI. No pericardial effusion. Estimated
pulmonary artery pressures 40-45 mmHg. Her twelve-lead EKG is normal without arrhythmias noted on telemetry. proBNP was 150. Cardiac troponin was 0.031, 0.018, 0.040, and most recently 0.32. Cardiology consulted as she was found to have elevated
troponin.
General: No acute distress, AAOX3
Neck: Negative JVD. Scar noted from recent surgery, healing
Heart: Regular,positive S1/S2, 1/6 SM
Lungs: Bronchovesicular breath sounds with scattered wheezes. No crackles
Abd: Positive BS, NT/ND, neg rebound/rigidity/guarding
Ext: + 1 edema RLE. Patient reports pain and burning with light touch in bilateral legs
Plan:
Provoked submassive bilateral pulmonary embolism and right lower extremity DVT following recent C6-7 ACDF surgery for cervical myelopathy 01/09/2024 complicated by persistent numbness/weakness with neuropathic pain from the torso down bilateral legs.
-Respiratory and hemodynamic status stable not requiring supplemental oxygen
-IV heparin with event transition to oral anticoagulation therapeutic for acute PE/DVT
-Duration of anticoagulation therapy deferred to medicine and pulmonary
-Agree with medicine plan for appropriate cancer screening as an outpatient
-2D echocardiogram with normal RV size and systolic function. Pulmonary pressures slightly elevated without prior for comparison
-Twelve-lead EKG normal. No arrhythmia noted on telemetry
-Very minimal elevation in troponin which quickly improved without chest pain suggestive of angina. Non-MT elevation, related to pulmonary embolism.
History of coronary artery disease status post PCI x 4 to the RCA in 2009 and again in 2018
-No chest pain suggestive of angina
-Normal resting twelve-lead EKG
-Patient reports having recent reassuring stress test prior to surgery with her usual farm product purchaser
-Continue aspirin, statin
-Continue outpatient Imdur, losartan and metoprolol
-Goal normotension
-Patient instructed to follow-up with her usual farm product purchaser following this hospitalization
History of COPD and MASON on CPAP�pulmonary consulted
Mild aortic stenosis on echocardiogram�patient aware of finding and instructed to follow-up with her usual farm product purchaser for surveillance monitoring
History of type 2 diabetes mellitus with neuropathy�management per primary
Thrombocytopenia with platelets 110. Continue to follow with workup as planned by primary
Will sign off, recall if needed
Patient should follow-up with her outpatient farm product purchaser, Dr. Gonzalez
Original Note:
Consultation
Consultation Request
Date/Time Consultation Requested: 02/02/2024
Date/Time Consultation Performed: 02/02/2024
Requesting Provider: Dr. Brooks
Performing Provider: Stacey Dasilva PA-C for Dr. Bauman
Reason for Consultation: Elevated troponin
Medical History
-
History of Present Illness:
HPI: Yohana is an 78 year old female with PMH of CAD s/p PCI of RCA, COPD, MASON, HTN, HLD, DM2, hypothyroidism, and CKD. She was recently hospitalized at [facility] where she underwent C6-7 ACDF 01/09/2024. She has been at [facility] since discharge and
yesterday, 02/01/2024 started to notice some SOB and chest discomfort under her left breast. Due to symptoms, she was referred to [facility] where she was found to have PE on chest CT. She was not hypoxic, but given finding of new PE, was admitted for
further workup and evaluation. LE US noted RLE DVT. She continues on IV heparin. Cardiology consulted as she was found to have elevated troponin. Chest pain that she experienced yesterday feels different from her prior angina.
PMH:
Severe cervical spondylosis/myelopathy s/p anterior cervical C6-7 ACDF 01/09/2024
CAD
h/o PCI of RCA x 4 2017
COPD
MASON on CPAP
HTN
HLD
DM2
Hypothyroidism
CKD
Past Medical History
Past Medical History: Other (In HPI)
Past Surgical History: Cardiac (PCI x 4 of RCA) and Other (Thyroid nodule removal, tubal ligation)
Social History
Tobacco: Former Smoker
Alcohol: Occasional
Drug: None
Living: Assisted Living
Employment: Retired
Family History
Family History: CAD, Cancer and Hypertension
Allergies / Home Medications
Allergy/AdvReac Type Severity Reaction Status Date / Time
amoxicillin [From Augmentin] Allergy Severe Hives Verified 02/01/24 08:40
clavulanic acid Allergy Severe Hives Verified 02/01/24 08:40
[From Augmentin]
acetaminophen [From Percocet] Allergy Vomiting Verified 02/01/24 08:40
clopidogrel [From Plavix] Allergy Pharmacy Verified 02/01/24 08:40
to Review
codeine Allergy Hives Verified 02/01/24 08:40
hydrochlorothiazide Allergy Pharmacy Verified 02/01/24 08:40
to Review
oxycodone [From Percocet] Allergy Vomiting Verified 02/01/24 08:40
tomato Allergy Unknown Verified 02/01/24 08:40
tramadol Allergy Nausea / Verified 02/01/24 08:40
Vomiting
vancomycin Allergy Pharmacy Verified 02/01/24 08:40
to Review
�Medication �Instructions �Recorded �Confirmed �Type
acetaminophen 325 mg tablet 650 mg PO Q6HPRN PRN mild pain 01/16/24 02/01/24 History
albuterol sulfate 90 mcg/actuation 1 puff inhalation R Q4HPRN PRN 01/16/24 02/01/24 History
aerosol inhaler (Proventil HFA) wheezing
budesonide 3 mg 9 mg PO DAILY Anti-Inflammatory 01/16/24 02/01/24 History
capsule,delayed,extended release
cholecalciferol (vitamin D3) 25 25 mcg PO DAILY Supplement 01/16/24 02/01/24 History
mcg (1,000 unit) capsule (Vitamin
D3)
cholestyramine (with sugar) 4 gram 4 g PO DAILY@1000 Gastrointestinal 01/16/24 02/01/24 History
powder for susp in a packet Issue
cyanocobalamin (vitamin B-12) 1,000 mcg PO DAILY Supplement 01/16/24 02/01/24 History
1,000 mcg tablet
cyclosporine 0.05 % eye drops 1 drp BOTH EYES BID Eye Condition 01/16/24 02/01/24 History
(Restasis MultiDose)
empagliflozin 10 mg tablet 10 mg PO DAILY Diabetes 01/16/24 02/01/24 History
(Jardiance)
isosorbide mononitrate 30 mg 30 mg PO DAILY Heart 01/16/24 02/01/24 History
tablet,extended release 24 hr Disease/Condition
levothyroxine 50 mcg tablet 50 mcg PO DAILY AT 0700 Thyroid 01/16/24 02/01/24 History
losartan 100 mg tablet 50 mg PO QPM Blood Pressure 01/16/24 02/01/24 History
metoprolol succinate 50 mg 50 mg PO DAILY Blood Pressure 01/16/24 02/01/24 History
tablet,extended release 24 hr
nitroglycerin 0.4 mg sublingual 0.4 mg sublingual [id number] PRN 01/16/24 02/01/24 History
tablet CHEST PAINS
rosuvastatin 40 mg tablet (Crestor) 40 mg PO DAILY High Cholesterol 01/16/24 02/01/24 History
thiamine HCl (vitamin B1) 100 mg 100 mg PO DAILY Supplement 01/16/24 02/01/24 History
tablet
tramadol 50 mg tablet 50 mg PO Q6HPRN PRN moderate pain 01/16/24 02/01/24 History
albuterol sulfate 1.25 mg/3 mL 1.25 mg inhalation R DAILY 02/01/24 02/01/24 History
solution for nebulization Lung/Breathing Issues
albuterol sulfate 1.25 mg/3 mL 1.25 mg inhalation R Q4HPRN PRN sob 02/01/24 02/01/24 History
solution for nebulization
aspirin 81 mg tablet,delayed 81 mg PO DAILY Blood Clot 02/01/24 02/01/24 History
release Prevention/Tx
docusate sodium 100 mg capsule 100 mg PO BID Constipation 02/01/24 02/01/24 History
(Colace)
fluticasone propionate 44 2 puff inhalation R BID 02/01/24 02/01/24 History
mcg/actuation HFA aerosol inhaler Lung/Breathing Issues
gabapentin 300 mg capsule 300 mg PO HS Pain 02/01/24 02/01/24 History
guaifenesin 200 mg/5 mL oral liquid 200 mg PO Q4HPRN PRN cough 02/01/24 02/01/24 History
heparin (porcine) 5,000 unit/mL 5,000 unit SC Q12H Blood Clot 02/01/24 02/01/24 History
injection solution Prevention
lidocaine 4 % topical patch 1 patch topical DAILY CERVICAL 02/01/24 02/01/24 History
SPINE
methyl salicylate 15 %-menthol 10 1 applic topical TIDPRN PRN NECK 02/01/24 02/01/24 History
% topical cream
pantoprazole 20 mg tablet,delayed 20 mg PO HS Gastrointestinal Issue 02/01/24 02/01/24 History
release
sennosides 8.6 mg tablet (senna) 17.2 mg PO NOON Constipation 02/01/24 02/01/24 History
Review of Systems
-
History Source: Patient
All other systems: Negative unless noted
Physical Exam
Vital Signs
Temp Pulse Resp BP Pulse Ox
98.1 F 89 16 104/50 92
02/02/24 07:38 02/02/24 07:38 02/02/24 07:38 02/02/24 07:38 02/02/24 07:38
Lab Results
02/02/24 05:53
02/02/24 05:53
Troponin I 0.032 ng/ml 02/02/24 08:52
Tgw-E-Imfeysflmzq Pept 150 pg/ml 02/01/24 11:39
Physical Exam
General: Well Developed, Well Nourished and No Apparent Distress
HEENT: Normocephalic, Anicteric and Moist Mucous Membranes
Respiratory: Clear and Non Labored Respirations
Cardiac: S1/S2 and Regular Rhythm
Musculoskeletal: No Clubbing, No Cyanosis and Edema
Skin: Warm and Dry
Neuro: AO x 3 and Nonfocal/Grossly Intact
Psych: Calm
Impression / Plan
-
PCP: Dr. Sayra Arango
Voice Over Announcer: Dr. Gonzalez ([facility])
Impression:
Presented with chest discomfort
b/l PE by CT chest 02/01/2024
RLE DVT 02/01/2024
Elevated troponin, suspect nonischemic myocardial injury
Severe cervical spondylosis/myelopathy s/p anterior cervical C6-7 ACDF 01/09/2024
CAD
h/o PCI of RCA x 4 2017
COPD
MASON on CPAP
HTN
HLD
DM2
Hypothyroidism
CKD
Echo 02/01/2024: EF 60 to 65%, mild concentric LVH, mild with peak/mean gradients 22/11 mmHg, mild AI
Plan:
-Presented with left-sided chest discomfort. Found to have bilateral PE on CT of chest 02/01/2024. LE US with RLE DVT.
-Continue IV heparin. Eventually transition to oral anticoagulation for management of PE.
-Echo completed 02/01/2024 with preserved ejection fraction. No evidence of right heart strain.
-Known history of CAD with prior PCI of the RCA. Continue aspirin.
-Chest pain this admission feels different from prior angina. Continue Imdur 30 mg daily and Toprol 50 mg daily
-EKG reviewed. Sinus rhythm with no acute ischemic changes noted.
-Elevated troponin noted. Peaking at 0.04, trending down thereafter. Suspect nonischemic myocardial injury in the setting of acute PE and DVT.
-She is not hypoxic and appears euvolemic.
-Follow-up with primary farm product purchaser after discharge.
HPI: Yohana is an 78 year old female with PMH of CAD s/p PCI of RCA, COPD, MASON, HTN, HLD, DM2, hypothyroidism, and CKD. She was recently hospitalized at [facility] where she underwent C6-7 ACDF 01/09/2024. She has been at [facility] since discharge and
yesterday, 02/01/2024 started to notice some SOB and chest discomfort under her left breast. Due to symptoms, she was referred to [facility] where she was found to have PE on chest CT. She was not hypoxic, but given finding of new PE, was admitted for
further workup and evaluation. LE US noted RLE DVT. She continues on IV heparin. Cardiology consulted as she was found to have elevated troponin. Chest pain that she experienced yesterday feels different from her prior angina.
Data Reviewed
-
EKG: Tracing Personally Visualized and interpreted
CT Scan: Report Reviewed by me
Ultrasound: Report Reviewed by me
Labs: Labs Reviewed by me
Old Records: Reviewed
--- NOTE | 2024-02-02 10:06 | W.PN.PUL3 ---
Today's Communication / Plan
-
Heparin drip x 48 hrs
Transition to NOAC tomorrow
CM consult to assess cost of Eliquis
Okay for patient to get up OOB as tolerated
Once patient is transition to Eliquis, if she is able to ambulate without significant shortness of breath or hypoxia, then would arrange for discharge home
Continue with CPAP with sleep
Outpatient follow-up with Dr. Shi will be arranged
Assessment
-
78-year-old female with history of CAD, hypertension, diabetes, COPD, chronic kidney disease presented with left-sided chest pain from rehab noted to have submassive pulmonary embolism-pulmonary consulted for pulmonary embolism 02/01/2024.
Impression:
Submassive pulmonary embolism without significant RV strain-suspect provoked
RLE DVT involving popliteal vein + peroneal vein
Mild thrombocytopenia
Pulmonary nodules
Conditions present prior to admission:
CAD/stents-RCA 2009 and 2017
Hypertension.
Hyperlipidemia.
Diabetes.
COPD. .
Former smoker.
Seasonal allergies.
Nasal polyps
Chronic kidney disease-diabetic nephropathy.
Obesity-BMI 38
MASON on CPAP.
Nocturnal hypoxemia
Fatty liver.
Vitamin D deficiency.
Cataract. Cervical discectomy. Tubal ligation-1972. Thyroid nodule removed 1991
Plan
Maintain SpO2 >90-94%
Aspiration precautions
Incentive spirometry encouraged
Heparin gtt
CTA chest personally reviewed--see interpretation below
Echo with normal RV size and function
Outpatient follow-up with hematology for hypercoagulable work
Full PESI summarized above
Continue with heparin drip x 48 hours before transitioning to NOAC --> can transition to Eliquis tomorrow afternoon; have CM look up pricing for patient
Benefits and risks of thrombolytics therapy reviewed
Patient has no tachycardia and no hypotension-currently risks of aggressive thrombolytic therapy outweigh [id number] notified of options, reasons for conservative standard of care therapy reviewed
Ok for pt to get up OOB
DVT prophylaxis-on full anticoagulation
Early nutrition
Early mobilization
Patient last seen by Dr. Apple Shi 12/27/23 and was supposed to follow-up in one year-will have her seen obviously sooner
Outpatient pulmonary/sleep disorders [id number] results summarized below-Notes significant nocturnal hypoxemia
Outpatient appropriate malignancy screening
Pulmonary service will continue to follow along.
Total time spent today was 35 minutes for this encounter. Time includes reviewing laboratory test/imaging results, reviewing pertinent medical records, obtaining and reviewing medical history, performing an appropriate exam, ordering medications,
tests and procedures. Time also includes documentation of this encounter, coordinating patient care and communicating with other healthcare professionals. Total time does not include separately billed tests performed on this date of service.
Diagnostic data:
Chest x-ray 02/01/2024-minimal bibasilar atelectasis, questionable 10 mm nodular density right midlung field
CT of chest (06/24/23)- patchy areas of airspace disease in left LL. Focal nodular area measuring 11 mm in right LL and 9 mm in right LL- suspicious for infection. Follow up recommended.
CT Chest 09/05/23: 2.5 mm nodule within the inferior RUL. Ill defined density seen within the superior segment of the RLL which appears more nodular in appearance along its superior margin measuring 9.4 mm. Heavily calcified aortic valve and coronary
arteries. Hepatic steatosis. Recommend continued short term CT follow up 3-[address] chest 02/01/2024-multiple filling defects compatible with pulmonary emboli, no dilation of right ventricle, grossly unchanged 10 mm subpleural opacification superior segment right lower lobe, hepatic steatosis
MRI of cervical spine (01/08)-No bone edema present. Interval post surgical changes of anterior spinal fusion at C6-7 level. No cord compression. Multilevel DJD changes including spinal stenosis.
CT of cervical spine (01/08)-Anterior spinal fusion at C6-7 level with intervertebral disc prosthesis. DJD of cervical spine.
LE Duplex 02/01/2024: Right lower extremity DVT.
Echo (04/2023)- AV trileaflet. Mild aortic sclerosis. Normal RV function. PASP 11 mm. No significant valvular heart disease. LV function is 65-70%, CLVH. Grade 1 diastolic dysfunction.
Nuclear stress test (01/03)- Negative for ischemia. LV function is normal. Baseline EKG- NSR with low voltage QRS, poor R wave progression. LVEF during stress test is 84%
TTE 02/01/2024:
Normal left ventricular size and systolic function.
LV ejection fraction is 60-65% by visual assessment.
Mild concentric left ventricular hypertrophy.
Normal right ventricular systolic function.
Indexed LA volume is within normal range (15-34 mL/m2).
No mitral regurgitation is seen.
Mild aortic stenosis.
Peak/mean gradients are 22/11mmHg. The valve area by continuity equation is
1.7cm sq, using a LVOT of 1.9cm .
Mild aortic regurgitation.
Normal pericardium without effusion.
The IVC is of normal size and demonstrates normal respiratory variation.
HST-ordered by Dr. Mack's [id number]-47.1, desaturation travon 75%, REM-AHI 29.5, 113 minutes spent less than 90% saturation
Spirometry 08/30/23- FEV1 0.83L 50%, FVC 1.59 or 71%, Ratio 52. Post FEV1 1.29L 78% sign BD response in FEV1 and FVC (moderate obstruction with sign BD response).
PFTs 12/27/23: FEV1 1.4L 87%, FVC 1.87L 86%, ratio 75.� TLC 3.25L 74%, DLCO 78% (mild restriction)
Subjective Data
-
Date of Service:
Date of Service: February 02, 2024
Chief Complaint: Pulmonary Follow Up
Subjective:
Seen and evaluated today at bedside. She currently denies shortness of breath. Still having some chest pain with deep inspiration. Used her CPAP at night which she does for history of MASON. at bedside and all questions were answered.
Patient currently denies CANDELARIO, SOB at rest, abdominal pain, fevers or chills.
Review of Systems
General: Other (Negative unless mentioned above)
Objective Data
Data Reviewed
Vital Signs / I&O / Oxygen:
Vital Signs
Temp Pulse Resp BP Pulse Ox
98.4 F 88 17 96/54 91
02/02/24 11:01 02/02/24 11:01 02/02/24 11:01 02/02/24 11:01 02/02/24 11:01
Intake and Output
02/01/24 02/02/24 02/03/24
06:59 06:59 06:59
Intake Total 240 / 240
Balance 240 / 240
SaO2 91
Physical Exam
General: Respiratory Distress (negative), Comfortable, Chills (negative) and Sweats (negative)
HEENT: Normocephalic and Anicteric
Cardiovascular: S1-S2 and Peripheral Edema (negative)
Respiratory: Clear, Wheeze (negative), Crackles (negative), Rhonchi (negative) and Non-Labored Respirations
GI: Soft, Non Distended, Non Tender and Normal Bowel Sounds
Neurology: Awake, Alert and Tremors (negative)
Skin: Warm, Dry and Jaundice (negative)
Labs/Micro/Reports
Lab Data
02/02/24 05:53
02/02/24 05:53
Laboratory Results
02/01/24 02/01/24 02/02/24
11:39 17:55 03:43
APTT 29.9 > 200 H* > 200 H*
[2024-02-02] MEDS: HEPARIN 25000 UNITS/250 ML IV (10:58)
[2024-02-02 11:01] VITALS: BP 96/54; BMI 37.1
[2024-02-02] MEDS: QUESTRAN 4 GRAM PO (11:14)
[2024-02-02 11:36] LABS: Glucose - Point of Care 127 mg/dl (70-99)
[2024-02-02 12:58] LABS: APTT 107.1 Sec (23.4-35.0)
[2024-02-02] MEDS: SENOKOT 17.2 MG PO (13:02)
--- NOTE | 2024-02-02 15:36 | CM ---
Reviewed chart, met with patient and her spouse and children who were at bedside. Patient was at [facility] 3 weeks ago and then transferred to [facility]. Patient stated that she was ambulating 50ft with her rolling walker and an assist of 1.
Prior to her admission at [facility], patient lived with her spouse at [facility]. Her goal is to return there but she would like to go to [place] again to finish her rehab prior to returning home.
Will need to call [facility] in [place] admissions and send clinical as it comes to update.
Patient has Medicare.
Plan: Case management will continue to follow and assist with discharge planning. Back to [place].
[2024-02-02 16:11] VITALS: BP 124/58
[2024-02-02 16:40] LABS: Glucose - Point of Care 136 mg/dl (70-99)
[2024-02-02] MEDS: COZAAR 50 MG PO (17:31)
[2024-02-02 19:00] VITALS: BP 119/64
[2024-02-02 19:49] LABS: APTT 117.1 Sec (23.4-35.0)
[2024-02-02] MEDS: PROTONIX 20 MG PO (20:59)
[2024-02-02] MEDS: NEURONTIN 300 MG PO (20:59)
[2024-02-02] MEDS: ProAIR HFA INHALER 1 PUFF INH (21:02)
[2024-02-02 21:49] LABS: Glucose - Point of Care 125 mg/dl (70-99)
[2024-02-02 23:00] VITALS: BP 117/65
[2024-02-03 03:00] VITALS: BP 116/69
[2024-02-03 04:07] LABS: APTT 133.8 Sec (23.4-35.0)
[2024-02-03] MEDS: SYNTHROID 50 MCG PO (06:35)
[2024-02-03 07:00] VITALS: BP 91/53
[2024-02-03 07:15] LABS: Glucose - Point of Care 88 mg/dl (70-99)
[2024-02-03] MEDS: VENTOLIN NEBULES 1.25 MG INH (07:17)
[2024-02-03] MEDS: FLOVENT 44 MCG INHALER 2 PUFF INH ×2 (07:17→19:21)
[2024-02-03 07:28] LABS: ALT (SGPT) 26 U/L (0-35); AST (SGOT) 26 U/L (14-36); Albumin 3.6 g/dl (3.5-5.0); Alkaline Phosphatase 66 U/L (38-126); Blood Urea Nitrogen 15 mg/dl (7-17); Calcium 9.6 mg/dl (8.4-10.2); Carbon Dioxide 25 mmol/L (22-30); Chloride 105 mmol/L (98-107); Estimated Creatinine Clearance 46 ml/min; Glucose 95 mg/dl (70-99); Potassium 4.6 mmol/L (3.5-5.1); Sodium 140 mmol/L (135-145); Total Bilirubin 0.8 mg/dl (0.2-1.3); eGFR 56.95
[2024-02-03] MEDS: ASPIR LOW (ENTERIC COATED) 81 MG PO (07:53)
[2024-02-03] MEDS: VITAMIN D3 (cholecalciferol) 25 MCG PO (07:53)
[2024-02-03] MEDS: COLACE 100 MG PO ×2 (07:53→20:18)
[2024-02-03] MEDS: ENTOCORT EC 9 MG PO (07:54)
[2024-02-03] MEDS: VITAMIN B1 100 MG PO (07:54)
[2024-02-03] MEDS: IMDUR (EXTENDED RELEASE) 30 MG PO (07:54)
[2024-02-03] MEDS: RESTASIS 0.05% OPHTHALMIC EMULSION 1 DROPS BOTH EYES ×2 (07:54→20:18)
[2024-02-03] MEDS: CRESTOR 40 MG PO (07:55)
[2024-02-03] MEDS: VITAMIN B-12 1000 MCG PO (07:55)
[2024-02-03] MEDS: LIDOCAINE 4% PATCH 1 PATCH TOPICAL (07:55)
[2024-02-03 08:15] LABS: Hematocrit 40.1 % (37.0-47.0); Hemoglobin 13.1 g/dL (12.0-16.0); Mean Corp Hgb Conc. 32.7 g/dL (33.0-37.0); Mean Corpuscular Hgb 29.5 pg (27.0-31.0); Mean Corpuscular Volume 90.3 fL (81.0-99.0); Mean Platelet Volume 10.6 fL (7.4-10.4); Platelet Count 132 10^3/uL (130-400); Red Blood Cell Count 4.44 10^6/uL (4.20-5.40); Red Cell Dist. Width 16.2 % (11.5-14.5); White Blood Cell Count 5.7 10^3/uL (4.8-10.8)
[2024-02-03 09:00] VITALS: BP 113/67
[2024-02-03] MEDS: TOPROL XL 50 MG PO (09:01)
--- NOTE | 2024-02-03 10:02 | W.PN.PUL3 ---
Today's Communication / Plan
-
Heparin drip x 48 hrs
Transition to NOAC today
CM consult to assess cost of Eliquis
Okay for patient to get up OOB as tolerated
Once patient is transitions to Eliquis, if she is able to ambulate without significant shortness of breath or hypoxia, then would arrange for discharge home
Continue with CPAP with sleep
Outpatient follow-up with Dr. Shi will be arranged
Pulmonary service will continue to briefly follow along.
Assessment
-
78-year-old female with history of CAD, hypertension, diabetes, COPD, chronic kidney disease presented with left-sided chest pain from rehab noted to have submassive pulmonary embolism-pulmonary consulted for pulmonary embolism 02/01/2024.
Impression:
Submassive pulmonary embolism without significant RV strain-suspect provoked
RLE DVT involving popliteal vein + peroneal vein
Mild thrombocytopenia - improving
Pulmonary nodules
Conditions present prior to admission:
CAD/stents-RCA 2009 and 2017
Hypertension.
Hyperlipidemia.
Diabetes.
COPD. .
Former smoker.
Seasonal allergies.
Nasal polyps
Chronic kidney disease-diabetic nephropathy.
Obesity-BMI 38
MASON on CPAP.
Nocturnal hypoxemia
Fatty liver.
Vitamin D deficiency.
Cataract. Cervical discectomy. Tubal ligation-1972. Thyroid nodule removed 1991
Plan
Maintain SpO2 >90-94%
Aspiration precautions
Incentive spirometry encouraged 10x/hr for at least 4 hrs a day
Heparin gtt --> to be changed to Eliquis today
- Consult CM to assure Eliquis is affordable to pt before discharge
CTA chest personally reviewed--see interpretation below
Echo with normal RV size and function
Outpatient follow-up with hematology for hypercoagulable work
Full PESI summarized above
Continue with heparin drip x 48 hours before transitioning to NOAC --> transitioning to Eliquis today; have look up pricing for patient
Benefits and risks of thrombolytics therapy reviewed
Patient has no tachycardia and no hypotension-currently risks of aggressive thrombolytic therapy outweigh [id number] notified of options, reasons for conservative standard of care therapy reviewed
Ok for pt to get up OOB
DVT prophylaxis-on full anticoagulation
Early nutrition
Early mobilization
Patient last seen by Dr. Apple Shi 12/27/23 and was supposed to follow-up in one year-will have her seen obviously sooner
Outpatient pulmonary/sleep disorders vynuja-en-klerpoptmhktf results summarized below-Notes significant nocturnal hypoxemia
Outpatient appropriate malignancy screening
Pulmonary service will continue to follow along.
Total time spent today was 35 minutes for this encounter. Time includes reviewing laboratory test/imaging results, reviewing pertinent medical records, obtaining and reviewing medical history, performing an appropriate exam, ordering medications,
tests and procedures. Time also includes documentation of this encounter, coordinating patient care and communicating with other healthcare professionals. Total time does not include separately billed tests performed on this date of service.
Diagnostic data:
Chest x-ray 02/01/2024-minimal bibasilar atelectasis, questionable 10 mm nodular density right midlung field
CT of chest (06/24/23)- patchy areas of airspace disease in left LL. Focal nodular area measuring 11 mm in right LL and 9 mm in right LL- suspicious for infection. Follow up recommended.
CT Chest 09/05/23: 2.5 mm nodule within the inferior RUL. Ill defined density seen within the superior segment of the RLL which appears more nodular in appearance along its superior margin measuring 9.4 mm. Heavily calcified aortic valve and coronary
arteries. Hepatic steatosis. Recommend continued short term CT follow up 3-[address] chest 02/01/2024-multiple filling defects compatible with pulmonary emboli, no dilation of right ventricle, grossly unchanged 10 mm subpleural opacification superior segment right lower lobe, hepatic steatosis
MRI of cervical spine (01/08)-No bone edema present. Interval post surgical changes of anterior spinal fusion at C6-7 level. No cord compression. Multilevel DJD changes including spinal stenosis.
CT of cervical spine (01/08)-Anterior spinal fusion at C6-7 level with intervertebral disc prosthesis. DJD of cervical spine.
LE Duplex 02/01/2024: Right lower extremity DVT.
Echo (04/2023)- AV trileaflet. Mild aortic sclerosis. Normal RV function. PASP 11 mm. No significant valvular heart disease. LV function is 65-70%, CLVH. Grade 1 diastolic dysfunction.
Nuclear stress test (01/03)- Negative for ischemia. LV function is normal. Baseline EKG- NSR with low voltage QRS, poor R wave progression. LVEF during stress test is 84%
TTE 02/01/2024:
Normal left ventricular size and systolic function.
LV ejection fraction is 60-65% by visual assessment.
Mild concentric left ventricular hypertrophy.
Normal right ventricular systolic function.
Indexed LA volume is within normal range (15-34 mL/m2).
No mitral regurgitation is seen.
Mild aortic stenosis.
Peak/mean gradients are 22/11mmHg. The valve area by continuity equation is
1.7cm sq, using a LVOT of 1.9cm .
Mild aortic regurgitation.
Normal pericardium without effusion.
The IVC is of normal size and demonstrates normal respiratory variation.
HST/07/04-ordered by Dr. Mack's [id number]-29.1, desaturation travon 75%, REM-AHI 29.5, 113 minutes spent less than 90% saturation
Spirometry 08/30/23- FEV1 0.83L 50%, FVC 1.59 or 71%, Ratio 52. Post FEV1 1.29L 78% sign BD response in FEV1 and FVC (moderate obstruction with sign BD response).
PFTs 12/27/23: FEV1 1.4L 87%, FVC 1.87L 86%, ratio 75.� TLC 3.25L 74%, DLCO 78% (mild restriction)
Subjective Data
-
Date of Service:
Date of Service: February 03, 2024
Chief Complaint: Pulmonary Follow Up
Subjective:
Seen and evaluated today at bedside. On room air breathing comfortably. Heparin drip to be changed to Eliquis today. She has no complaints. Able to walk around room without significant shortness of breath. Denies CANDELARIO, abdominal pain, fevers or
chills; still has some chest discomfort with deep inspiration.
Review of Systems
General: Other (Negative unless mentioned above)
Objective Data
Data Reviewed
Vital Signs / I&O / Oxygen:
Vital Signs
Temp Pulse Resp BP Pulse Ox
98.6 F 102 16 113/67 92
02/03/24 07:00 02/03/24 09:00 02/03/24 07:19 02/03/24 09:00 02/03/24 07:19
Intake and Output
02/02/24 02/03/24 02/04/24
06:59 06:59 06:59
Intake Total 240 / 240 180 / 180 240 / 240
Balance 240 / 240 180 / 180 240 / 240
SaO2 92
Physical Exam
General: Respiratory Distress (negative), Comfortable, Chills (negative) and Sweats (negative)
HEENT: Normocephalic and Anicteric
Cardiovascular: S1-S2 and Peripheral Edema (negative)
Respiratory: Clear, Wheeze (negative), Crackles (negative), Rhonchi (negative) and Non-Labored Respirations
GI: Soft, Non Distended, Non Tender and Normal Bowel Sounds
Neurology: AO x 3 and Tremors (negative)
Skin: Warm, Dry and Jaundice (negative)
Labs/Micro/Reports
Lab Data
02/03/24 06:09
02/03/24 06:09
Laboratory Results
02/02/24 02/02/24 02/03/24
12:14 19:31 03:44
APTT 107.1 H 117.1 H 133.8 H
[2024-02-03] MEDS: QUESTRAN 4 GRAM PO (10:27)
[2024-02-03 11:00] VITALS: BP 123/66
[2024-02-03] MEDS: SENOKOT PO (11:08)
[2024-02-03 11:56] LABS: APTT 53.9 Sec (23.4-35.0)
--- NOTE | 2024-02-03 12:23 | CM ---
Received message from attending who stated that patient can be medically cleared for discharge. Placed a call to Laya in admissions at [facility]. Had to leave a voice mail.
Plan: Case management will continue to follow and assist with discharge planning. [facility] upon acceptance.
--- NOTE | 2024-02-03 12:25 | W.PN.HOSP.TC ---
Today's Communication/Plan
-
CM working with [facility] for readmission
Assessment / Plan
Assessment / Plan
78yo F with PMHx of CAD s/p PCI, HTN, DM, ocular migraines, HLD, hypothyroidism, obesity, MASON, COPD, microscopic colitis, fatty liver, recent anterior cervical C6-C7 ACDF in [facility] on 01/09/24 with partial improvement of symptoms later
transferred for [facility] started to feel sharp pain under L breast. Found pulmonary embolism on CT and RLE DVT. Remained not hypoxic, hemodynamically stable, Echo without RH disfunction. Switched to [facility] in 48h after admission. Advised for age
appropriate CA screening with PCP. Medically stable to continue acute rehab - CM working with [facility] for readmission
A/P
#Acute pulmonary embolism, most likely provoked 2/2 recent surgery
#Acute RLE DVT
PESI 90 - class 3 - intermediate risk, appropriate for inpatient monitoring with extended parenteral anticoagulation
Heparin drip
Troponin and proBNP for risk stratification
EKG without ST changes
Pulm conult: eventual hypercoagulable workup
Advised to have age appropriate CA screening with PCP 2/2 large clot burden, however still suspect recent Sx to be the reason
Echo without RH disfunction
LE US showed RLE DVT
#Mild thrombocytopenia
resolved
most likely 2/2 PE
#Paracentral disk herniation s/p ACDF
PT/OT
#DM type 2 with neuropathy
cont home meds
Accuchecks, Insulin SS, DM diet
Hold oral hypoglycemics
#Mild troponin elevation, most likely non-ischemic, 2/2 VTE
Chest pain is pleuritic
however with PMHx of CAD with PCI called Cardiology consult: no concern for ACS
#MASON
#CAD s/p PCI
#Essential HTN
#Fatty liver disease
#Hx of pulmonary nodules
#Ocular migraines
#COPD not in exacrbation
#Hypothyroidism
#HLD
#Constipation
Cont home meds
cont CPAP
cont to follow with established cat breeder upon d/c
DVT ppx - on Eliquis
FUll code
I have spent at least 38min reviewing the chart, test results, communication with consultants and direct patient care
Anticipated Discharge: Within 24 hours
Subjective/Interval History
-
Date of Service: February 03, 2024
Objective Data
-
Labs:
Laboratory Results
02/03/24 02/03/24 02/03/24
03:44 06:09 11:37
WBC 5.7
Hgb 13.1
Hct 40.1
Plt Count 132
APTT 133.8 H 53.9 H
Sodium 140
Potassium 4.6
Chloride 105
Carbon Dioxide 25
BUN 15
Creatinine 1.0
Glucose 95
Calcium 9.6
Total Bilirubin 0.8
AST 26
ALT 26
Alkaline Phosphatase 66
Vital Signs:
Vital Signs
Temp Pulse Resp BP Pulse Ox
98.6 F 95 20 123/66 92
02/03/24 11:00 02/03/24 11:00 02/03/24 11:00 02/03/24 11:00 02/03/24 11:00
I&O
02/02/24 02/03/24 02/04/24
06:59 06:59 06:59
Intake Total 240 / 240 180 / 180 240 / 240
Balance 240 / 240 180 / 180 240 / 240
Review of Systems
-
History Source: Patient
All other systems: Reviewed and negative
Physical Exam
-
General: No Apparent Distress
HEENT: Normocephalic
Respiratory: Clear to Auscultation
Cardiac: Regular Rhythm
GI: Soft
[2024-02-03] MEDS: ELIQUIS 10 MG PO ×2 (13:23→20:18)
[2024-02-03 13:38] LABS: Glucose - Point of Care 153 mg/dl (70-99)
[2024-02-03 15:00] VITALS: BP 113/55
[2024-02-03 16:30] LABS: Glucose - Point of Care 137 mg/dl (70-99)
[2024-02-03] MEDS: COZAAR 50 MG PO (17:06)
[2024-02-03] MEDS: ProAIR HFA INHALER 1 PUFF INH (19:23)
[2024-02-03 21:23] LABS: Glucose - Point of Care 192 mg/dl (70-99)
[2024-02-03] MEDS: NEURONTIN 300 MG PO (21:28)
[2024-02-03] MEDS: PROTONIX 20 MG PO (21:28)
[2024-02-03 23:28] VITALS: BP 108/59
[2024-02-04] MEDS: SYNTHROID 50 MCG PO (06:04)
[2024-02-04 07:00] VITALS: BP 113/65
[2024-02-04] MEDS: VITAMIN B1 100 MG PO (07:32)
[2024-02-04] MEDS: ASPIR LOW (ENTERIC COATED) 81 MG PO (07:32)
[2024-02-04] MEDS: CRESTOR 40 MG PO (07:32)
[2024-02-04] MEDS: FLOVENT 44 MCG INHALER 2 PUFF INH ×2 (07:32→19:34)
[2024-02-04] MEDS: ENTOCORT EC 9 MG PO (07:32)
[2024-02-04] MEDS: VITAMIN B-12 1000 MCG PO (07:33)
[2024-02-04] MEDS: ProAIR HFA INHALER 1 PUFF INH ×2 (07:33→19:37)
[2024-02-04] MEDS: VITAMIN D3 (cholecalciferol) 25 MCG PO (07:33)
[2024-02-04] MEDS: RESTASIS 0.05% OPHTHALMIC EMULSION 1 DROPS BOTH EYES ×2 (07:33→20:03)
[2024-02-04] MEDS: TOPROL XL 50 MG PO (07:34)
[2024-02-04] MEDS: IMDUR (EXTENDED RELEASE) 30 MG PO (07:34)
[2024-02-04] MEDS: LIDOCAINE 4% PATCH 1 PATCH TOPICAL (07:34)
[2024-02-04] MEDS: COLACE PO ×2 (07:41→20:02)
[2024-02-04 07:43] LABS: Glucose - Point of Care 82 mg/dl (70-99)
[2024-02-04] MEDS: ELIQUIS 10 MG PO ×2 (07:43→20:02)
[2024-02-04 07:45] VITALS: BP 113/65
[2024-02-04] MEDS: VENTOLIN NEBULES INH (08:16)
[2024-02-04] MEDS: QUESTRAN 4 GRAM PO (10:16)
[2024-02-04] MEDS: SENOKOT PO (11:22)
[2024-02-04 11:30] LABS: Glucose - Point of Care 122 mg/dl (70-99)
--- NOTE | 2024-02-04 13:21 | CM ---
Spoke with Laya in admissions at [facility] who stated that she needs to review patient's PT/OT prior to reaccepting to facility. Updated attending who put in order. Will send updated notes to [facility].
Plan: Case management will continue to follow and assist with discharge planning. Patient and family hopeful that patient can go to [facility] when she is cleared for discharge.
--- NOTE | 2024-02-04 13:31 | W.PN.HOSP.TC ---
Today's Communication/Plan
-
awaiting dc
Assessment / Plan
Assessment / Plan
78yo F with PMHx of CAD s/p PCI, HTN, DM, ocular migraines, HLD, hypothyroidism, obesity, MASON, COPD, microscopic colitis, fatty liver, recent anterior cervical C6-C7 ACDF in [facility] on 01/09/24 with partial improvement of symptoms later
transferred for [facility] started to feel sharp pain under L breast. Found pulmonary embolism on CT and RLE DVT. Remained not hypoxic, hemodynamically stable, Echo without RH disfunction. Sw[facility] to [facility] after admission. Advised for age
appropriate CA screening with PCP. Medically stable to continue acute rehab - [facility]
A/P
#Acute pulmonary embolism, most likely provoked 2/2 recent surgery
#Acute RLE DVT
PESI 90 - class 3 - intermediate risk, appropriate for inpatient monitoring with extended parenteral anticoagulation
Heparin drip transitioned to eliquis
Troponin and proBNP for risk stratification
EKG without ST changes
Pulm consult: eventual hypercoagulable workup; F/u with Hematology outpatient
Advised to have age appropriate CA screening with PCP 2/2 large clot burden, however still suspect recent Sx to be the reason
Echo without RH disfunction
LE US showed RLE DVT
#Mild thrombocytopenia
resolved
most likely 2/2 PE
#Paracentral disk herniation s/p ACDF
PT/OT
#DM type 2 with neuropathy
cont home meds
Accuchecks, Insulin SS, DM diet
Hold oral hypoglycemics
#Mild troponin elevation, most likely non-ischemic, 2/2 VTE
Chest pain is pleuritic
however with PMHx of CAD with PCI called Cardiology consult: no concern for ACS
#MASON
#CAD s/p PCI
#Essential HTN
#Fatty liver disease
#Hx of pulmonary nodules
#Ocular migraines
#COPD not in exacrbation
#Hypothyroidism
#HLD
#Constipation
Cont home meds
cont CPAP
cont to follow with established rivet tosser upon d/c
DVT ppx - on Eliquis
FUll code
Anticipated Discharge: Within 24 hours
Subjective/Interval History
-
Date of Service: February 04, 2024
no acute events
Objective Data
-
Vital Signs:
Vital Signs
Temp Pulse Resp BP Pulse Ox
98.0 F 87 16 113/65 92
02/04/24 07:00 02/04/24 07:36 02/04/24 07:36 02/04/24 07:34 02/04/24 07:36
I&O
02/03/24 02/04/24 02/05/24
06:59 06:59 06:59
Intake Total 180 / 180 840 / 840
Balance 180 / 180 840 / 840
Review of Systems
-
History Source: Patient
All other systems: Not reviewed unless documented
Data Reviewed
-
CT Scan: Image personally visualized and interpreted and Report Reviewed by me
Ultrasound: Report Reviewed by me
Labs: Labs Reviewed by me
--- NOTE | 2024-02-04 13:53 | W.PN.PUL3 ---
Today's Communication / Plan
-
Transitioned to Eliquis, tolerating well
Resume PAP at night
Awaiting placement at rehab
Outpatient pulmonary FU to be arranged
Discharge planning per team
We will sign off at this time, please call with questions
Assessment
-
78-year-old female with history of CAD, hypertension, diabetes, COPD, chronic kidney disease presented with left-sided chest pain from rehab noted to have submassive pulmonary embolism-pulmonary consulted for pulmonary embolism 02/01/2024.
Impression:
Submassive pulmonary embolism without significant RV strain-suspect provoked
RLE DVT involving popliteal vein + peroneal vein
Mild thrombocytopenia - improving
Pulmonary nodules
Conditions present prior to admission:
CAD/stents-RCA 2009 and 2017
Hypertension.
Hyperlipidemia.
Diabetes.
COPD. .
Former smoker.
Seasonal allergies.
Nasal polyps
Chronic kidney disease-diabetic nephropathy.
Obesity-BMI 38
MASON on CPAP.
Nocturnal hypoxemia
Fatty liver.
Vitamin D deficiency.
Cataract. Cervical discectomy. Tubal ligation-1972. Thyroid nodule removed 1991
Plan
Maintain SpO2 >90-94%
Aspiration precautions
Incentive spirometry encouraged 10x/hr for at least 4 hrs a day
Heparin gtt --> to be changed to Eliquis 02/02
CTA chest personally reviewed--see interpretation below
Echo with normal RV size and function
Outpatient follow-up with hematology for hypercoagulable work
Benefits and risks of thrombolytics therapy reviewed
No tpA given
Ok for pt to get up OOB
PT/OT
For [facility] placement
DVT prophylaxis-on full anticoagulation
Early nutrition
Early mobilization
Patient last seen by Dr. Apple Shi 12/27/23 and was supposed to follow-up in one year-will have her seen obviously sooner
Outpatient pulmonary/sleep disorders [id number] results summarized below-Notes significant nocturnal hypoxemia
Outpatient appropriate malignancy screening
Diagnostic data:
Chest x-ray 02/01/2024-minimal bibasilar atelectasis, questionable 10 mm nodular density right midlung field
CT of chest (06/24/23)- patchy areas of airspace disease in left LL. Focal nodular area measuring 11 mm in right LL and 9 mm in right LL- suspicious for infection. Follow up recommended.
CT Chest 09/05/23: 2.5 mm nodule within the inferior RUL. Ill defined density seen within the superior segment of the RLL which appears more nodular in appearance along its superior margin measuring 9.4 mm. Heavily calcified aortic valve and coronary
arteries. Hepatic steatosis. Recommend continued short term CT follow up 3-[address] chest 02/01/2024-multiple filling defects compatible with pulmonary emboli, no dilation of right ventricle, grossly unchanged 10 mm subpleural opacification superior segment right lower lobe, hepatic steatosis
MRI of cervical spine (01/08)-No bone edema present. Interval post surgical changes of anterior spinal fusion at C6-7 level. No cord compression. Multilevel DJD changes including spinal stenosis.
CT of cervical spine (01/08)-Anterior spinal fusion at C6-7 level with intervertebral disc prosthesis. DJD of cervical spine.
LE Duplex 02/01/2024: Right lower extremity DVT.
Echo (04/2023)- AV trileaflet. Mild aortic sclerosis. Normal RV function. PASP 11 mm. No significant valvular heart disease. LV function is 65-70%, CLVH. Grade 1 diastolic dysfunction.
Nuclear stress test (01/03)- Negative for ischemia. LV function is normal. Baseline EKG- NSR with low voltage QRS, poor R wave progression. LVEF during stress test is 84%
TTE 02/01/2024:
Normal left ventricular size and systolic function.
LV ejection fraction is 60-65% by visual assessment.
Mild concentric left ventricular hypertrophy.
Normal right ventricular systolic function.
Indexed LA volume is within normal range (15-34 mL/m2).
No mitral regurgitation is seen.
Mild aortic stenosis.
Peak/mean gradients are 22/11mmHg. The valve area by continuity equation is
1.7cm sq, using a LVOT of 1.9cm .
Mild aortic regurgitation.
Normal pericardium without effusion.
The IVC is of normal size and demonstrates normal respiratory variation.
HST-ordered by Dr. Mack's Rqsyhx-SQB-43.1, desaturation travon 75%, REM-AHI 29.5, 113 minutes spent less than 90% saturation
Spirometry 08/30/23- FEV1 0.83L 50%, FVC 1.59 or 71%, Ratio 52. Post FEV1 1.29L 78% sign BD response in FEV1 and FVC (moderate obstruction with sign BD response).
PFTs 12/27/23: FEV1 1.4L 87%, FVC 1.87L 86%, ratio 75.� TLC 3.25L 74%, DLCO 78% (mild restriction)
-----
Total time spent today was 40 minutes for this encounter. Time includes reviewing laboratory test/imaging results, reviewing pertinent medical records, obtaining and reviewing medical history, performing an appropriate exam, ordering medications,
tests and procedures. Time also includes documentation of this encounter, coordinating patient care and communicating with other healthcare professionals. Total time does not include separately billed tests performed on this date of service.
Subjective Data
-
Date of Service:
Date of Service: February 04, 2024
Chief Complaint: Pulmonary Follow Up
Subjective:
Doing well today, no new complaints
Stable on RA
Objective Data
Data Reviewed
Vital Signs / I&O / Oxygen:
Vital Signs
Temp Pulse Resp BP Pulse Ox
98.0 F 87 16 113/65 92
02/04/24 07:00 02/04/24 07:36 02/04/24 07:36 02/04/24 07:34 02/04/24 07:36
Intake and Output
02/03/24 02/04/24 02/05/24
06:59 06:59 06:59
Intake Total 180 / 180 840 / 840
Balance 180 / 180 840 / 840
SaO2 92
Physical Exam
General: Respiratory Distress (negative), Comfortable, Chills (negative), Sweats (negative) and Good Appetite
HEENT: Normocephalic and Anicteric
Cardiovascular: S1-S2, Regular Rhythm and Peripheral Edema (negative)
Respiratory: Clear, Wheeze (negative), Crackles (negative), Rhonchi (negative) and Non-Labored Respirations
GI: Soft, Non Distended, Non Tender and Normal Bowel Sounds
Neurology: AO x 3 and Tremors (negative)
Skin: Warm, Dry and Jaundice (negative)
Labs/Micro/Reports
Lab Data
02/03/24 06:09
02/03/24 06:09
[2024-02-04 15:00] VITALS: BP 130/52
[2024-02-04 15:50] VITALS: BP 115/63; PULSE 83; O2SAT 92
[2024-02-04 16:28] LABS: Glucose - Point of Care 125 mg/dl (70-99)
[2024-02-04] MEDS: COZAAR 50 MG PO (17:53)
[2024-02-04] MEDS: NEURONTIN 300 MG PO (21:24)
[2024-02-04] MEDS: PROTONIX 20 MG PO (21:24)
[2024-02-04 22:05] LABS: Glucose - Point of Care 103 mg/dl (70-99)
[2024-02-04 23:00] VITALS: BP 144/67
--- NOTE | 2024-02-05 05:52 | PTCARENOTE ---
Pt sleeping intermittently t/o the night. Pt ambulatory to bathroom with assist/ walker. Pt sleeping with Pt own CPAP in place. Pt reports right sided breast pain only when taking deep breaths. Denies need for pain medication. Vital signs stable. No
issues to report. Will continue to monitor.
[2024-02-05] MEDS: SYNTHROID 50 MCG PO (06:29)
[2024-02-05] MEDS: MOTRIN 600 MG PO (06:31)
[2024-02-05 06:37] LABS: Hematocrit 37.6 % (37.0-47.0); Hemoglobin 12.6 g/dL (12.0-16.0); Mean Corp Hgb Conc. 33.5 g/dL (33.0-37.0); Mean Corpuscular Volume 86.6 fL (81.0-99.0); Mean Platelet Volume 9.9 fL (7.4-10.4); Platelet Count 152 10^3/uL (130-400); Red Blood Cell Count 4.34 10^6/uL (4.20-5.40); Red Cell Dist. Width 15.9 % (11.5-14.5)
[2024-02-05 07:05] VITALS: BP 144/72
[2024-02-05 07:05] LABS: ALT (SGPT) 23 U/L (0-35); AST (SGOT) 26 U/L (14-36); Albumin 3.6 g/dl (3.5-5.0); Alkaline Phosphatase 58 U/L (38-126); Blood Urea Nitrogen 15 mg/dl (7-17); Calcium 9.6 mg/dl (8.4-10.2); Carbon Dioxide 29 mmol/L (22-30); Chloride 105 mmol/L (98-107); Estimated Creatinine Clearance 51 ml/min; Glucose 99 mg/dl (70-99); Potassium 4.4 mmol/L (3.5-5.1); Sodium 143 mmol/L (135-145); Total Bilirubin 0.7 mg/dl (0.2-1.3); eGFR > 60.00
[2024-02-05] MEDS: VENTOLIN NEBULES 1.25 MG INH (07:53)
[2024-02-05] MEDS: FLOVENT 44 MCG INHALER 2 PUFF INH (07:53)
[2024-02-05 07:54] LABS: Glucose - Point of Care 96 mg/dl (70-99)
[2024-02-05 09:05] VITALS: BP 129/92; PULSE 98; O2SAT 90
[2024-02-05] MEDS: VITAMIN D3 (cholecalciferol) 25 MCG PO (09:11)
[2024-02-05] MEDS: ELIQUIS 10 MG PO (09:11)
[2024-02-05] MEDS: VITAMIN B-12 1000 MCG PO (09:11)
[2024-02-05] MEDS: CRESTOR 40 MG PO (09:11)
[2024-02-05] MEDS: ENTOCORT EC 9 MG PO (09:12)
[2024-02-05] MEDS: LIDOCAINE 4% PATCH 1 PATCH TOPICAL (09:12)
[2024-02-05] MEDS: RESTASIS 0.05% OPHTHALMIC EMULSION 1 DROPS BOTH EYES (09:12)
[2024-02-05] MEDS: COLACE 100 MG PO (09:12)
[2024-02-05] MEDS: VITAMIN B1 100 MG PO (09:12)
[2024-02-05] MEDS: ASPIR LOW (ENTERIC COATED) 81 MG PO (09:12)
[2024-02-05] MEDS: IMDUR (EXTENDED RELEASE) 30 MG PO (09:12)
[2024-02-05] MEDS: TOPROL XL 50 MG PO (09:20)
[2024-02-05] MEDS: QUESTRAN 4 GRAM PO (10:51)
--- NOTE | 2024-02-05 10:56 | CM ---
CM reviewed with Niraj from [facility], able to accept patient today. TT sent to Hospitalist with update. Patient seen, IMM reviewed, signed, placed in chart. Patient aware of discharge to [facility]. CM will continue to follow for all discharge planning
needs.
Plan; [facility]
Report: [phone]
Fax: [phone]
[2024-02-05 11:42] LABS: Glucose - Point of Care 129 mg/dl (70-99)
--- NOTE | 2024-02-05 11:57 | W.PN.HOSP.TC ---
Addendum entered and electronically signed by Arsenio Pruitt MD 02/05/24 16:17:
[id number]
Original Note:
Today's Communication/Plan
-
DC today
Eliquis on dc
F/u PCP, Hematology, Cardiology, Pulmonary outpatient
Assessment / Plan
Assessment / Plan
78yo F with PMHx of CAD s/p PCI, HTN, DM, ocular migraines, HLD, hypothyroidism, obesity, MASON, COPD, microscopic colitis, fatty liver, recent anterior cervical C6-C7 ACDF in [facility] on 01/09/24 with partial improvement of symptoms later
transferred for [facility] started to feel sharp pain under L breast. Found pulmonary embolism on CT and RLE DVT. Remained not hypoxic, hemodynamically stable, Echo without RH disfunction. Switched to [facility] in 48h after admission. Advised for age
appropriate CA screening with PCP. Medically stable to continue acute rehab - [facility]
A/P
#Acute pulmonary embolism, most likely provoked 2/2 recent surgery
#Acute RLE DVT
PESI 90 - class 3 - intermediate risk, appropriate for inpatient monitoring with extended parenteral anticoagulation
Heparin drip transitioned to eliquis
Troponin and proBNP for risk stratification
EKG without ST changes
Pulm consult: eventual hypercoagulable workup; F/u with Pulmonary, Hematology outpatient
Advised to have age appropriate CA screening with PCP 2/2 large clot burden, however still suspect recent Sx to be the reason
Echo without RH disfunction
LE US showed RLE DVT
#Mild thrombocytopenia
resolved
#Paracentral disk herniation s/p ACDF
PT/OT
#DM type 2 with neuropathy
cont home meds
Accuchecks, Insulin SS, DM diet
oral hypoglycemics
#Mild troponin elevation, most likely non-ischemic, 2/2 VTE
Chest pain is pleuritic
however with PMHx of CAD with PCI called Cardiology consult: no concern for ACS
#MASON
#CAD s/p PCI
#Essential HTN
#Fatty liver disease
#Hx of pulmonary nodules
#Ocular migraines
#COPD not in exacrbation
#Hypothyroidism
#HLD
#Constipation
Cont home meds
cont CPAP
cont to follow with established orthodontist assistant upon d/c
DVT ppx - on Eliquis
FUll code
More than 30 minutes spent in discharge including
Final examination of the patient
Summarizing hospital stay
Instructions for continuing care to all relevant caregivers
Preparation of discharge records, prescriptions, and referral forms
Total time spent (35 in minutes):
Anticipated Discharge: Today
Subjective/Interval History
-
Date of Service: February 05, 2024
no acute events
Objective Data
-
Labs:
Laboratory Results
02/05/24
06:20
WBC 6.0
Hgb 12.6
Hct 37.6
Plt Count 152
Sodium 143
Potassium 4.4
Chloride 105
Carbon Dioxide 29
BUN 15
Creatinine 0.9
Glucose 99
Calcium 9.6
Total Bilirubin 0.7
AST 26
ALT 23
Alkaline Phosphatase 58
Vital Signs:
Vital Signs
Temp Pulse Resp BP Pulse Ox
98.1 F 85 17 144/72 90
02/05/24 07:05 02/05/24 09:20 02/05/24 07:05 02/05/24 09:20 02/05/24 07:05
I&O
02/04/24 02/05/24 02/06/24
06:59 06:59 06:59
Intake Total 840 / 840 600 / 600
Balance 840 / 840 600 / 600
Review of Systems
-
History Source: Patient
All other systems: Not reviewed unless documented
Physical Exam
-
General: No Apparent Distress
HEENT: Normocephalic
Respiratory: Clear to Auscultation
Cardiac: Regular Rhythm
GI: Soft
Data Reviewed
-
CT Scan: Image personally visualized and interpreted and Report Reviewed by me
Ultrasound: Report Reviewed by me
Labs: Labs Reviewed by me
--- NOTE | 2024-02-05 12:03 | W.DS.TRANS ---
DC Summary - [employer]
-
Discharge Instructions:
Discharge Diagnosis/Procedures #Acute pulmonary embolism, most likely provoked
2/2 recent surgery
#Acute RLE DVT
Diet Low Fat,Low Cholesterol,Diabetic, Carb
Controlled
Activity As tolerated
Instructions:
Stand-Alone Forms:
Changes to Home Medications: Yes
Discharge Medications:
DC Medications w/original date entered in [facility]
acetaminophen 325 mg tablet 650 mg PO Q6HPRN PRN mild pain 01/16/24
albuterol sulfate 90 mcg/actuation aerosol inhaler (Proventil HFA) 1 puff inhalation R Q4HPRN PRN wheezing 01/16/24
budesonide 3 mg capsule,delayed,extended release 9 mg PO DAILY Anti-Inflammatory 01/16/24
cholecalciferol (vitamin D3) 25 mcg (1,000 unit) capsule (Vitamin D3) 25 mcg PO DAILY Supplement 01/16/24
cholestyramine (with sugar) 4 gram powder for susp in a packet 4 g PO DAILY@1000 Gastrointestinal Issue 01/16/24
cyanocobalamin (vitamin B-12) 1,000 mcg tablet 1,000 mcg PO DAILY Supplement 01/16/24
cyclosporine 0.05 % eye drops (Restasis MultiDose) 1 drp BOTH EYES BID Eye Condition 01/16/24
empagliflozin 10 mg tablet (Jardiance) 10 mg PO DAILY Diabetes 01/16/24
isosorbide mononitrate 30 mg tablet,extended release 24 hr 30 mg PO DAILY Heart Disease/Condition 01/16/24
levothyroxine 50 mcg tablet 50 mcg PO DAILY AT 0700 Thyroid 01/16/24
losartan 100 mg tablet 50 mg PO QPM Blood Pressure 01/16/24
metoprolol succinate 50 mg tablet,extended release 24 hr 50 mg PO DAILY Blood Pressure 01/16/24
nitroglycerin 0.4 mg sublingual tablet 0.4 mg sublingual [id number] PRN CHEST PAINS 01/16/24
rosuvastatin 40 mg tablet (Crestor) 40 mg PO DAILY High Cholesterol 01/16/24
thiamine HCl (vitamin B1) 100 mg tablet 100 mg PO DAILY Supplement 01/16/24
albuterol sulfate 1.25 mg/3 mL solution for nebulization 1.25 mg inhalation R DAILY Lung/Breathing Issues 02/01/24
albuterol sulfate 1.25 mg/3 mL solution for nebulization 1.25 mg inhalation R Q4HPRN PRN sob 02/01/24
aspirin 81 mg tablet,delayed release 81 mg PO DAILY Blood Clot Prevention/Tx 02/01/24
docusate sodium 100 mg capsule (Colace) 100 mg PO BID Constipation 02/01/24
fluticasone propionate 44 mcg/actuation HFA aerosol inhaler 2 puff inhalation R BID Lung/Breathing Issues 02/01/24
gabapentin 300 mg capsule 300 mg PO HS Pain 02/01/24
guaifenesin 200 mg/5 mL oral liquid 200 mg PO Q4HPRN PRN cough 02/01/24
lidocaine 4 % topical patch 1 patch topical DAILY CERVICAL SPINE 02/01/24
methyl salicylate 15 %-menthol 10 % topical cream 1 applic topical TIDPRN PRN NECK 02/01/24
pantoprazole 20 mg tablet,delayed release 20 mg PO HS Gastrointestinal Issue 02/01/24
sennosides 8.6 mg tablet (senna) 17.2 mg PO NOON Constipation 02/01/24
apixaban 5 mg tablet (Eliquis) 5 mg PO BID #60 tabs 02/05/24
apixaban 5 mg tablet (Eliquis) 10 mg (2 x 5 mg) PO BID 5 days #20 tabs 02/05/24
Home Medication Changes
apixaban 5 mg tablet (Eliquis) 5 mg PO BID #60 tabs 02/05/24
apixaban 5 mg tablet (Eliquis) 10 mg (2 x 5 mg) PO BID 5 days #20 tabs 02/05/24
Pending Results: No
[2024-02-05 12:13] VITALS: BP 112/65
[2024-02-05] MEDS: SENOKOT PO (12:18)
== END 2024-02-05 13:06 | DRG 176 ==
LOC: 3 WEST ACU 12:17
PROVIDERS: ADMITTING PHYSICIAN Internal Medicine; ATTENDING PHYSICIAN Internal Medicine; CONSULT PHYSICIAN Internal Medicine Cardiovascular Disease; CONSULT PHYSICIAN Internal Medicine Critical Care Medicine; EMERGENCY PHYSICIAN Emergency Medicine; FAMILY PHYSICIAN Internal Medicine Geriatric Medicine
DX: I26.99 Other pulmonary embolism without acute cor pulmonale (principal); I82.401 Acute embolism and thrombosis of unspecified deep veins of right lower extremity; I5A Non-ischemic myocardial injury (non-traumatic); Z87.891 Personal history of nicotine dependence; Z79.82 Long term (current) use of aspirin; D69.6 Thrombocytopenia, unspecified; E11.40 Type 2 diabetes mellitus with diabetic neuropathy, unspecified; Z75.1 Person awaiting admission to adequate facility elsewhere
CPT/HCPCS: 71046; 71275; 80053; 82962; 83880; 84484; 85025; 85027; 85379; 85730; 86022; 93005; 93306; 93970; 94640; 96365; 96375; 97162; 97166; 97530; 99285; Q9967

== ENCOUNTER → 2024-08-21 10:32 | Outpatient (REF) | payer MEDICARE, BC, SELFPAY | LOC: HWRAD 10:32 | PROVIDERS: ATTENDING PHYSICIAN Internal Medicine; FAMILY PHYSICIAN Internal Medicine Geriatric Medicine | DX: R91.1 Solitary pulmonary nodule (principal) | CPT/HCPCS: 71250 ==

== ENCOUNTER → 2024-09-05 12:56 | Outpatient (REF) | payer MEDICARE, BC, SELFPAY | LOC: HWRAD 12:56 | PROVIDERS: FAMILY PHYSICIAN Internal Medicine Geriatric Medicine | DX: Z13.820 Encounter for screening for osteoporosis (principal); M81.0 Age-related osteoporosis without current pathological fracture | CPT/HCPCS: 77080 ==